=== PATIENT | female | born 1965 | race Caucasian/White ===

== ENCOUNTER 2021-12-01 19:46 | Emergency (ER) | payer OTHER, SELFPAY ==
--- NOTE | ~2021-12-01 | XR_ITS ---
EXAMINATION: XR WRIST, RIGHT CLINICAL INFORMATION: Injury. Deformity. COMPARISON: None TECHNIQUE: PA, lateral, and oblique views of the right wrist. FINDINGS: Comminuted but predominantly horizontally oriented distal radial fracture with dorsal angulation and mild impaction. No other fractures. Carpal rows are maintained. 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 XR/XR wrist RT min 3V IMPRESSION: Distal radial fracture as above.
[2021-12-01 21:15] VITALS: BP 171/106; PULSE 72; RESP 20; TEMP 36.6; O2SAT 97; BMI 25.5
[2021-12-01] MEDS: Acetaminophen 325 MG TABLET 650 MG PO (21:22)
--- NOTE | 2021-12-01 22:35 | ED.EXTPRO ---
HPI - Extremity Problem General Chief complaint: Extremity Injury, Upper Stated complaint: broken arm Time Seen by Provider: 12/01/21 22:23 Source: patient Mode of arrival: ambulatory Limitations: no limitations History of Present Illness HPI Narrative: 56-year-old female presents to the emergency department with complaints of right wrist pain status post work related injury. 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 She tells me is very swollen and painful to the touch. Vague complaints of numbness and tingling to all digits on the right hand. MD Complaint: joint swelling and joint pain Related Data Previous Rx's Medication Instructions Recorded morphine 15 mg immediate release 15 mg PO BID PRN pain #10 tabs 12/01/21 tablet Allergies Allergy/AdvReac Type Severity Reaction Status Date / Time No Known Allergies Allergy Verified 12/01/21 21:20 Review of Systems Review of Systems: Constitutional : No Weight loss, No Fever, No Chills, No Fatigue, No Malaise Eyes: No Eye Pain, No Swelling, No Redness Cardiovascular : No Chest Pain, No SOB, No Dyspnea on Exertion, No Orthopnea, No Edema, No Palpitations Respiratory : No Cough, No Sputum, No Wheezing Gastrointestinal : No Nausea, No Vomiting, No Diarrhea, No Constipation, No abdominal Pain, No Hematochezia, No Melena Genitourinary : No Dysuria, No Urinary Frequency, No Hematuria, Musculoskeletal : + joint pain, No Myalgias, + Joint Swelling Skin : No Skin Lesions, No rash Neuro : No Weakness, No Numbness, No Dizziness, No Headache All other systems reviewed and are negative Yes all other systems are reviewed and are negative [facility] Past Medical History Attestation statement: The following information was validated with the patient. Source: old records reviewed and nursing notes reviewed Social History Social History Advance Directives: No Advance Directives Information Provided: No Physical Exam Vital Signs: Vital Signs: Last Vital Signs Temp 98 F 12/01/21 21:15 Pulse 72 12/01/21 21:15 Resp 20 12/01/21 21:15 BP 171/106 H 12/01/21 21:15 Pulse Ox 97 12/01/21 21:15 O2 Del Method 12/01/21 21:15 BMI result Body Mass Index 25.5 The patient is noted to be hypertensive likely secondary to severe pain. Appearance: Alert.? Oriented X3.? No acute distress.? Head: Normocephalic, atraumatic, no step-offs or deformities Eyes: Pupils equal, round and reactive to light.? ENT: Pharynx normal.? Neck: Normal inspection.? Neck supple.? CVS: Normal heart rate and rhythm.? Pulses normal.? Respiratory: No respiratory distress.? Breath sounds normal.? Abdomen: Soft and nontender.? Skin: Skin warm and dry.? Normal skin color.? Normal skin turgor.? Extremities: 5/5 strength to left upper extremity and bilateral lower extremities. Unable to assess strength to the right upper extremity secondary to pain. Patient reports pain with range of motion to right wrist, there is significant swelling overlying the right wrist with some ecchymosis overlying the scaphoid region of the right wrist, capillary refill to bilateral upper extremity digits less than 2 seconds, sensory and motor intact. No wrist drop bilaterally. Right wrist with slight dorsal angulation pain Neuro: Oriented X 3.? No motor deficit.? No sensory deficit. CN 2-12 intact Course Reevaluation(s) Reevaluation #1: X-ray of the right wrist with distal radial fracture that is comminuted but predominantly horizontally oriented with a distal radial fracture with dorsal angulation and mild impaction. Plan at this time is to place patient in a splint. P.o. morphine will be given for pain. Time: 22:40 Reevaluation #2: Discussed this case w/ Dr. Covington. Will placed in a thumb spica splint, post placement neurovascularly intact. I advised patient to follow-up with orthopedics within a week. Educated patient on recent signs and symptoms and when to return. Time: 22:52 Reevaluation #3: Patient was placed in a thumb spica feeling slightly better, is given p.o. morphine, after placement of splint neurovascularly intact. At this time patient was discharged home with strict return precautions. Educated her on worrisome signs and symptoms and when to return. I did educate Ang compartment syndrome and educated her to return if any of these symptoms arise Time: 23:41 MDM - Extremity (Nontraumatic) MDM Narrative Medical decision making narrative: 2016 56-year-old female presents to the emergency department a work related injury status post falling onto an outstretched hand while at work, reporting 10/10 pain and unable to move that right wrist due to pain Physical examination significant for 5/5 strength to left upper extremity and bilateral lower extremities. Unable to assess strength to the right upper extremity secondary to pain. Patient reports pain with range of motion to right wrist, there is significant swelling overlying the right wrist with some ecchymosis overlying the scaphoid region of the right wrist, capillary refill to bilateral upper extremity digits less than 2 seconds, sensory and motor intact. No wrist drop bilaterally. Right wrist with slight dorsal angulation pain There is pain and swelling overlying the anatomical snuffbox region which is concerning for possible scaphoid fracture. Will rule out fractures, dislocations. Explained to patient that x-rays will only without fractures, dislocations significant soft tissue swelling and she will likely require an MRI Plan at this time is plain film to rule out fractures, dislocations. Medical Records Attestation: I reviewed the patient's medical records. Lab Data Attestation: I reviewed the patient's lab results. Critical Care Time Critical Care Time Critical Care Time: No Discharge Plan Discharge Clinical Impression: Distal radial fracture, Work related injury Patient Disposition: Home, Self-Care Instructions: Arm Fracture in Adults (ED), Wrist Fracture in Adults (ED), R.I.C.E. Treatment (ED) Additional Instructions: Take your medications as prescribed. If you were prescribed antibiotics today, it is important that you take your medication to their entirety, do not skip any doses, do not finish them early. Follow-up with your primary care provider this week. Follow-up with orthopedics within a week. Return to the emergency department with new or worsening symptoms. Such as fevers, chills, chest pain, shortness of breath, nausea, vomiting, dizziness, headache, vision changes, lethargy In case of emergency call 911 Follow-up with the work connection as this was a work related injury rest, ice, extermity FINDINGS: Comminuted but predominantly horizontally oriented distal radial fracture with dorsal angulation and mild impaction. No other fractures. Carpal rows are maintained. 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 XR/XR wrist RT min 3V IMPRESSION: Distal radial fracture as above. Prescriptions: New morphine 15 mg tablet 15 mg PO BID PRN (Reason: pain) Qty: 10 0RF Rx Instructions: Partial Fill upon patient request. Referrals: [facility] [place]Provider Group] - 1 week Stand Alone Forms: Work/School Release
[2021-12-01] MEDS: Morphine Sulfate Immed Release 15 MG TABLET PO (22:59)
[2021-12-01 23:49] VITALS: BP 152/88; PULSE 82; RESP 18; O2SAT 97
== END 2021-12-01 23:51 | disposition home or self-care (01) ==
PROVIDERS: Emergency Provider Internal Medicine
DX: S52.501A Unspecified fracture of the lower end of right radius, initial encounter for closed fracture (principal); X50.0XXA Overexertion from strenuous movement or load, initial encounter; X50.9XXA Other and unspecified overexertion or strenuous movements or postures, initial encounter; Y93.9 Activity, unspecified; Y92.9 Unspecified place or not applicable; Y99.0 Civilian activity done for income or pay
CPT/HCPCS: 29125; 73110; 99284

== ENCOUNTER 2021-12-08 09:24 | Outpatient (REF) | payer OTHER, SELFPAY | END 2021-12-08 09:25 | disposition home or self-care (01) | LOC: HO.HOSX 09:24 | PROVIDERS: Visit Provider Orthopaedic Surgery | DX: S52.501A Unspecified fracture of the lower end of right radius, initial encounter for closed fracture (principal) | CPT/HCPCS: 99202 ==

== ENCOUNTER 2021-12-11 07:29 | Day surgery (SDC) | payer OTHER, SELFPAY ==
--- NOTE | 2021-12-08 13:40 | P.CONAN_ITS ---
Documented by User: Seda Mercedes NP 12/08/21 13:41 HPI - Anesthesia Eval Consult details Narrative: 56yo F for Right Radius Distal Fracture ORIF PMFSH Active Problems Active Problems: All Active Problems (Updated 12/08/21 @ 11:20 by Johanna De Souza MD) Acute carpal tunnel syndrome of right wrist (Acute) Distal radius fracture, right (Acute) Past Medical History Medical History Acid reflux Anxiety High blood pressure Surgical History Surgical History (Updated 12/11/21 @ 09:24 by Katelyn Kim MD) H/O tubal ligation H/O: hysterectomy Previous section Social History Social History Patient Tobacco Use Status: Current someday Tobacco user Tobacco use type: Cigarette Use of substances other than those prescribed or required for medical reasons: No Are you DNR?: No Advance Directives: No Advance Directives Information Provided: Yes Advance Directives on File: No Current occupational status: employed 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[employer] Meds Allergies Allergy/AdvReac Type Severity Reaction Status Date / Time No Known Allergies Allergy Verified 12/08/21 10:49 Home Medications Medication Instructions Recorded Confirmed Last Taken Type amlodipine 10 mg tablet 10 mg PO DAILY 12/08/21 Unknown History bupropion HCl 100 mg tablet,12 hr 100 mg PO DAILY 12/08/21 Unknown History sustained-release clonazepam 0.5 mg tablet 0.5 mg PO BID PRN anxiety 12/08/21 Unknown History levothyroxine 112 mcg tablet 112 mcg PO QAM 12/08/21 Unknown History sertraline 50 mg tablet 50 mg PO DAILY 12/08/21 Unknown History Exam Exam Date and Time: December 08, 2021 1340 Assessment and Plan Assessment Anesthesia Assessment: Chart Reviewed Documented by User: Katelyn Kim MD 12/11/21 09:35 PMFSH Active Problems Active Problems: All Active Problems (Updated 12/08/21 @ 11:20 by Johanna De Souza MD) Acute carpal tunnel syndrome of right wrist (Acute) Distal radius fracture, right (Acute) Smoker Hypothyroidism Past Medical History Medical History Acid reflux Anxiety High blood pressure Family History Family history of problems with anesthesia: No Surgical History Surgical History (Updated 12/11/21 @ 09:24 by Katelyn Kim MD) H/O tubal ligation H/O: hysterectomy Previous section History of Problems with Anesthesia: No Social History Social History Patient Tobacco Use Status: Current someday Tobacco user Tobacco use type: Cigarette Use of substances other than those prescribed or required for medical reasons: No Are you DNR?: No Advance Directives: No Advance Directives Information Provided: Yes Advance Directives on File: No Current occupational status: employed 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[employer] Meds Allergies Allergy/AdvReac Type Severity Reaction Status Date / Time No Known Allergies Allergy Verified 12/08/21 10:49 Home Medications Medication Instructions Recorded Confirmed Last Taken Type amlodipine 10 mg tablet 10 mg PO DAILY 12/08/21 Unknown History bupropion HCl 100 mg tablet,12 hr 100 mg PO DAILY 12/08/21 Unknown History sustained-release clonazepam 0.5 mg tablet 0.5 mg PO BID PRN anxiety 12/08/21 Unknown History levothyroxine 112 mcg tablet 112 mcg PO QAM 12/08/21 Unknown History sertraline 50 mg tablet 50 mg PO DAILY 12/08/21 Unknown History Exam Height,Weight and Vital Signs: Height 5 ft 4 in Weight 63.049 kg Vital Signs Temp Pulse Resp BP Pulse Ox O2 Del Method 12/11/21 08:01 97.6 F 55 16 132/82 95 Room Air Airway Mallampati Class: II TM Dist: >3cm Neck ROM: Full Loose/Missing/Broken Teeth: No (Per patient ) Heart: RRR Lungs: CTAB Assessment and Plan Assessment Anesthesia Assessment: Anesthesia Plan Discussed Final Anesthetic Review Family History of Problems with Anesthesia: No History of Problems with Anesthesia: No NPO: Yes ASA Class: II Final Preanesthetic Review: No Changes in Pt Med Stat, Meds/Allgs Chart Reviewed, Consent Obtained/Reviewed and Anes Risks/Benef Reviewed Patient Risk: Low Procedure Risk: Low Assessment/Block/Sedation in SS: Assess/Block/Sedation-SS Anesthetic Plan Anesthetic Plan: GA and Regional Block (Right supraclavicular brachial plexus block) Disposition: Standard PACU
[2021-12-11] VITALS (7 sets, daily range): BP systolic 110–140; BP diastolic 68–85; PULSE 55–69; RESP 16; TEMP 36.2–36.4; O2SAT 94–98; BMI 23.8
--- NOTE | ~2021-12-11 | FL_ITS ---
EXAMINATION: XR FLUOROSCOPY WITH IMAGES CLINICAL INFORMATION: ORIF distal right radius. COMPARISON: Radiographs dated 12/01/2021. TECHNIQUE: Fluoroscopy performed by Carina De Souza. Fluoroscopy time: 25.56 seconds DAP: 0.0382 mGycm2 Images: 3 FINDINGS: The submitted images show a fixator plate and fixator screws applied to the distal right radius. The distal radial fracture fragment appears in good alignment. FL/FL guidance in OR IMPRESSION: Intraoperative fluoroscopic guidance is provided during distal right radial ORIF. Please see Operative Report for full procedural details.
[2021-12-11] MEDS: Lactated Ringers 1,000 ML 100 ML IVCONT (08:13)
--- NOTE | 2021-12-11 10:16 | MHC.SHP ---
Pre-Procedural Eval Section A Date of Service: 12/11/21 The patient is an INPATIENT: No Changes since office visit: No Cold of Flu in the past 2 weeks, No New Medical Problems, No Changes in Medication and No Patient answered all questions The History & Physical has been completed within 30 days and I have reviewed it.: Yes Section B Chief Complaint: Unspecified fracture of the lower end of right rad Allergies: Allergies Allergy/AdvReac Type Severity Reaction Status Date / Time No Known Allergies Allergy Verified 12/08/21 10:49 Plan I have reviewed the history and physical and performed a pertinent physical examination on my patient. No changes have occurred unless specified.
--- NOTE | 2021-12-11 10:16 | W.PM.OPN ---
Operative Note Operative Note Date of Service: 12/11/21 Narrative: Operative Note Narrative: Preop diagnosis: 1. Right comminuted Intra-articular Distal radius fracture Postop diagnosis: Same Procedure: 1. Right Distal radius fracture open reduction internal fixation, 2 part intra-articular Surgeon: Johanna De Souza MD Anesthesia: General anesthesia plus regional block Findings: comminuted intra-articular distal radius fracture Implants: A 3 hole Accu Med volar locking plate, with 4x 2.3 mm locking pegs/screws, and 3 3.5 mm cortical screws Tourniquet time: 54 minutes EBL: 5.0 ml Specimen: None Drains: None Complications: None Disposition: Brought to the recovery room in stable condition Plan: Follow-up in 10-14 days for wound check, suture removal and postop radiographs The patient will be placed in either a short-arm cast or a volar wrist splint. Encouraged no lifting of anything heavier than a cell phone. Please encourage active and passive range of motion of the digits. Follow-up at 4-5 weeks postop for repeat radiographs. Indications: The patient is a 48 year old woman with a displaced right distal radius fracture . The risks and benefits of operative treatment, including but not limited to risk of damage to blood vessels, nerves, tendons, infection, recurrence, persistent pain or numbness, incomplete resolution of preoperative symptoms, or need for further surgery were discussed with the patient and they wished to proceed with surgery. Procedure: Once consent was obtained patient was brought back to the operating suite and placed in the operating table in a supine position. A regional block was performed by the anesthesia team. Perioperative antibiotics and anesthesia was administered by the anesthesia team. A tourniquet was applied to the proximal aspect of the right upper extremity and the limb was prepped and draped in a standard surgical fashion. The limb was elevated exsanguinated with Esmarch bandage and the tourniquet inflated to 250 mm of mercury for a total tourniquet time of 50 for minutes. The FluoroScan was used throughout the case to assess our reduction, and facilitate implant placement. A gentle closed reduction was 1st performed on the patient's right distal radius fracture. Was assessed radiographically before proceeding with the reduction internal fixation. I then made an 8 cm longitudinal incision over the distal aspect of the flexor carpi radialis tendon. The incision was made through the skin to the subcutaneous tissue using a 15. Blade. Then carefully dissected down to flexor carpi radialis tendon she tenotomy scissors. The FCR tendon sheath was then incised longitudinally using tenotomy scissors under direct visualization. The FCR tendon was then retracted ulnarly. I then made a longitudinal incision in the volar forearm fascia through the floor of FCR tendon sheath using tenotomy scissors under direct visualization. I identified the interval between the radial artery and the flexor tendons. This interval was developed further with my index finger, releasing some of the muscular fibers of the flexor pollicis longus. A dull weatlander retractor was then placed. I then created an ulnarly based flap of the pronator quadratus by releasing the radial and distal edges using a 15. Blade. A Irby elevator was used to elevate the pronator quadratus from the volar surface of the distal radius. This then revealed to us our distal radius fracture. An open reduction was then performed on our distal radius fracture. I then placed a short narrow 3 hole Accu Med volar locking plate on the volar surface of the distal radius. I placed a single K-wire through the distal aspect of the plate and into the distal radius. This was assessed using fluoroscopic images. I was satisfied with the placement of our plate. I then placed 4x 2.3 mm locking screws/pegs in the distal aspect of the plate and distal radius by 1st drilling bicortically with a 1.8 mm drill bit, measuring with a depth gauge, and placing the appropriate length locking screws/pegs. The placement of our plate and screws was then assessed again using fluoroscopic images. The once satisfied with the placement of the volar locking plate and screws on the distal aspect of the distal radius, the plate was then reduced to the shaft of the radius. I then placed 3 3.5 mm cortical screws to the proximal aspect of the plate and into the shaft of the radius. This was done by 1st drilling bicortically with a 2.8 mm drill bit, measuring with a depth gauge, and placing the appropriate length screw. Final radiographs were then obtained. The DRUJ was assessed and found to be stable on exam. I was satisfied with our reduction and placement of all implants. At this point the wound was irrigated with normal saline. The pronator quadratus was reduced back over the volar locking plate using some 3-0 Vicryl suture material. The tourniquet was then deflated and hemostasis was obtained with a brief period of local pressure and bipolar monopolar electrocautery. The subcutaneous layer was then reapproximated using some 4-0 Vicryl suture, and the skin edges were reapproximated using some 5 0 Prolene suture. The wound was then infiltrated with some 1% lidocaine with epinephrine postop pain control. A sterile dressing and a short dorsal splint allowing for active flexion and extension of the digits was applied. The patient appears to have tolerated the procedure well and with no complications. All digits were well vascularized conclusion of the case.
== END 2021-12-11 14:12 | disposition home or self-care (01) ==
PROVIDERS: Visit Provider Orthopaedic Surgery
PROC: (CPT 64721; principal; 2021-12-11 09:20)
PROC: (CPT 64721; 2021-12-11 09:20)
DX: S52.571A Other intraarticular fracture of lower end of right radius, initial encounter for closed fracture (principal); G56.01 Carpal tunnel syndrome, right upper limb; R20.0 Anesthesia of skin; W03.XXXA Other fall on same level due to collision with another person, initial encounter; Y93.F2 Activity, caregiving, lifting; Y92.9 Unspecified place or not applicable; Y99.0 Civilian activity done for income or pay; I10 Essential (primary) hypertension; F41.1 Generalized anxiety disorder; F17.210 Nicotine dependence, cigarettes, uncomplicated
CPT/HCPCS: 64721; 25608; C1713; C1769; J0690; J1100; J2250; J2405; J2795; J3010

== ENCOUNTER 2021-12-20 08:17 | Outpatient (REF) | payer OTHER, SELFPAY ==
--- NOTE | ~2021-12-20 | XR_ITS ---
EXAMINATION: XR WRIST, RIGHT CLINICAL INFORMATION: Follow-up fracture. COMPARISON: Right wrist 12/01/2021. TECHNIQUE: PA, lateral, and oblique views of the right wrist. FINDINGS: There is a volar plate and screws stabilizing distal radial fracture in alignment. No other fracture seen. There is mild soft tissue swelling. XR/XR wrist RT min 3V IMPRESSION: Stabilized distal radial fracture with volar plate and screws.
== END 2021-12-20 08:18 | disposition home or self-care (01) ==
LOC: HO.HOSX 08:17
PROVIDERS: Visit Provider Orthopaedic Surgery
DX: M25.531 Pain in right wrist (principal)
CPT/HCPCS: 73110

== ENCOUNTER 2021-12-26 08:56 | Outpatient (REF) | payer OTHER, SELFPAY ==
--- NOTE | ~2021-12-26 | XR_ITS ---
EXAMINATION: XR WRIST, RIGHT CLINICAL INFORMATION: M25.531 - Pain in right wrist COMPARISON: Radiographs right wrist 12/20/2021, 12/01/2021 TECHNIQUE: Right wrist is imaged in 3 views. FINDINGS: There has been recent open reduction and internal fixation distal radial fracture with placement of a volar plate and screws. Hardware is intact. The radial side screw questionably may extend just beyond the cortex radial styloid. There is no destructive process or osteolysis. Alignment is near-anatomic. There is no acute bony abnormality. XR/XR wrist RT min 3V IMPRESSION: -Hardware intact. No destructive process or osteolysis. -Radial side screw questionably may extend just beyond the cortex radial styloid. -No acute bony abnormality.
== END 2021-12-26 08:57 | disposition home or self-care (01) ==
LOC: HO.HOSX 08:56
PROVIDERS: Visit Provider Orthopaedic Surgery
DX: M25.531 Pain in right wrist (principal)
CPT/HCPCS: 73110

== ENCOUNTER → 2022-01-08 08:03 | Outpatient (BNVA) | payer OTHER, SELFPAY | PROVIDERS: Visit Provider Physician Assistant | DX: T81.41XD Infection following a procedure, superficial incisional surgical site, subsequent encounter (principal); S52.501D Unspecified fracture of the lower end of right radius, subsequent encounter for closed fracture with routine healing; G56.01 Carpal tunnel syndrome, right upper limb | CPT/HCPCS: 11042 ==

== ENCOUNTER 2022-01-24 08:25 | Outpatient (REF) | payer OTHER, SELFPAY ==
--- NOTE | ~2022-01-24 | XR_ITS ---
EXAMINATION: XR WRIST, RIGHT CLINICAL INFORMATION: Pain right wrist COMPARISON: Right wrist 12/26/2021 TECHNIQUE: PA, lateral, and oblique views of the right wrist. FINDINGS: There is comminuted distal radial fracture has been stabilized with while or plate and screws in satisfactory alignment. The hardware is intact. No new fracture seen. There is diffuse osteopenia. XR/XR wrist RT min 3V IMPRESSION: Slowly healing distal radial fracture stabilized with ventral plate and screws. Diffuse osteopenia.
== END 2022-01-24 08:26 | disposition home or self-care (01) ==
LOC: HO.HOSX 08:25
PROVIDERS: Visit Provider Orthopaedic Surgery
DX: M25.531 Pain in right wrist (principal)
CPT/HCPCS: 73110

== ENCOUNTER 2022-02-06 07:47 | Outpatient (REF) | payer OTHER, SELFPAY ==
--- NOTE | ~2022-02-06 | CT_ITS ---
EXAMINATION: CT WRIST WITHOUT CONTRAST, RIGHT CLINICAL INFORMATION: Follow-up fracture. COMPARISON: Radiographs of the wrist from 12/20/2021 and 01/24/2022. TECHNIQUE: Noncontrast multidetector CT imaging examination of the right wrist is performed using submillimeter collimation. Axial images and multiplanar reformatted images are reviewed. This CT examination was performed using dose optimization techniques as appropriate, variously including the following: *Automated exposure control *Adjustment of mA and/or kV according to patient size (this includes techniques or standardized protocols for targeted exams where dose is matched to indication/reason for exam; i.e. extremities or head) *Use of iterative reconstruction technique DLP: 134 mGy-cm FINDINGS: Bones are diffusely osteopenic. Again noted is the comminuted, intra-articular fracture of the distal radius, status post fixation with volar plate and screws. There is posttraumatic loss of radial length with approximately 0.5 cm of ulna positive variance. The distal edge of the volar fixation plate is along the anterior radial rim, and the tip of the screw through the radial styloid penetrates cortical bone and projects approximately 0.2 cm beyond the cortex. There is posttraumatic bone loss of the radial metaphysis and epiphysis resulting in a relatively large lucent gap between the radial styloid fragment and the posterior and posteromedial fragments. Periosteal new bone provides partial osseous union around the fracture, particularly around the radial styloid. There is lack of bridging bone medially. There is moderate narrowing of radioscaphoid joint space. A lucent defect of the anterior cortex of the scaphoid waist might be posttraumatic or is possibly a mechanical erosion from the loss of radial length and intermittent abutment of scaphoid against the volar plate. A punctate calcification is noted at the distal pole of the scaphoid. Otherwise, carpal bones have normal shape and alignment. Also, alignment is maintained at carpometacarpal joints. There is radiocarpal joint effusion. Flexor and extensor tendons are grossly unremarkable. CT/CT wrist RT wo IV con IMPRESSION: * Posttraumatic osteolysis, and loss of length, of the distal radius, status post open reduction and internal fixation. * Currently, there is significant lack of osseous union through the region of the fracture, loss of the radioscaphoid joint space, and radiocarpal joint effusion. * Also, there is a region of osteolysis of the anterior scaphoid waist which could be posttraumatic or possibly mechanical erosion.
== END 2022-02-06 07:48 | disposition home or self-care (01) ==
LOC: HO.CT 07:47
PROVIDERS: Visit Provider Orthopaedic Surgery
DX: S52.501A Unspecified fracture of the lower end of right radius, initial encounter for closed fracture (principal)
CPT/HCPCS: 73200

== ENCOUNTER → 2022-02-07 12:17 | Outpatient (BNVA) | payer SELFPAY | PROVIDERS: Visit Provider Orthopaedic Surgery | DX: S52.501D Unspecified fracture of the lower end of right radius, subsequent encounter for closed fracture with routine healing (principal); G56.01 Carpal tunnel syndrome, right upper limb | CPT/HCPCS: 99212 ==

== ENCOUNTER 2022-02-08 10:34 | Outpatient (REF) | payer OTHER, SELFPAY ==
[2022-02-08 11:09] LABS: MANUAL DIFF FLAG NO
[2022-02-08 11:57] LABS: Basophils Absolute Auto 0.1 X10*3/uL (0.0-0.2); Basophils Percent Auto 0.8 % (0-2); Eosinophils Absolute Auto 0.1 X10*3/uL (0.0-0.4); Hemoglobin 12.9 g/dl (12.0-16.0); Imm Gran Abs Auto 0.03 X10*3/uL (0.00-0.03); Imm Gran Pct Auto 0.5 % (0.0-0.4); Lymphocytes Absolute Auto 1.6 X10*3/uL (1.2-4.9); Lymphocytes Percent Auto 23.6 % (20-40); Mean Corpuscular HGB Conc 33.1 g/dl (31.0-35.0); Mean Corpuscular Hemoglobin 28.4 pg (27.0-33.0); Mean Corpuscular Volume 85.9 fL (80.0-98.0); Mean Platelet Volume 8.2 fL (9.4-12.3); Monocytes Absolute Auto 0.5 X10*3/uL (0.1-1.2); Monocytes Percent Auto 7.5 % (2-11); Neutrophils Absolute Auto 4.4 x10*3/uL (2.0-8.3); Neutrophils Percent Auto 65.6 % (45-73); Platelet Count 455 X10*3/uL (160-400); Red Blood Count 4.54 X10*6/uL (4.20-5.50); Red Cell Distribution Width 13.2 % (11.0-16.0); White Blood Count 6.7 X10*3/uL (4.8-10.8)
[2022-02-08 12:48] LABS: Erythrocyte Sedimentation Rate 23 MM/HR (0-20)
[2022-02-10 14:37] LABS: CRP High Sensitivity 3.3 mg/L
== END 2022-02-08 10:35 | disposition home or self-care (01) ==
LOC: HO.LAB 10:34
PROVIDERS: Visit Provider Orthopaedic Surgery
DX: T81.41XA Infection following a procedure, superficial incisional surgical site, initial encounter (principal)
CPT/HCPCS: 36415; 85025; 85652; 86141; 87040

== ENCOUNTER 2022-02-21 08:38 | Outpatient (REF) | payer SELFPAY ==
--- NOTE | ~2022-02-21 | XR_ITS ---
EXAMINATION: XR WRIST, RIGHT CLINICAL INFORMATION: Fracture. COMPARISON: Previous x-rays most recent January [address] 02/06/2022. TECHNIQUE: 4 views of the right wrist. FINDINGS: The bones are osteopenic. There is a plate and screws transfixing the comminuted intra-articular right distal radius fracture. Orthopedic hardware appears unchanged. Distal radius fracture appears unchanged. There is question of collapse of the proximal carpal row, widening of scapholunate distance and proximal migration of the capitate bone. There is lucency in the mid scaphoid bone again questionable for fracture versus osteolysis. There is an old healed fracture of 5th metacarpal bone. There is cystic or erosive change of the ulnar styloid. XR/XR wrist RT w scaphoid IMPRESSION: Stable appearance to the distal radius fracture. Question collapse of the proximal carpal row, wide scapholunate distance and proximal migration of the capitate bone. Lucency in the mid scaphoid bone questionable for fracture versus osteolysis.
== END 2022-02-21 08:39 | disposition home or self-care (01) ==
LOC: HO.HOSX 08:38
PROVIDERS: Visit Provider Orthopaedic Surgery
DX: S52.501D Unspecified fracture of the lower end of right radius, subsequent encounter for closed fracture with routine healing (principal); G56.01 Carpal tunnel syndrome, right upper limb
CPT/HCPCS: 73110; 99212

== ENCOUNTER → 2022-02-23 10:41 | Outpatient (BNVA) | payer OTHER, SELFPAY | PROVIDERS: PCP Family Medicine; Visit Provider Internal Medicine | DX: S52.501A Unspecified fracture of the lower end of right radius, initial encounter for closed fracture (principal); T81.41XA Infection following a procedure, superficial incisional surgical site, initial encounter | CPT/HCPCS: 99202 ==

== ENCOUNTER 2022-02-26 17:24 | Inpatient (IN) | payer OTHER, SELFPAY ==
--- NOTE | 2022-02-23 08:34 | P.CONAN_ITS ---
Documented by User: Seda Mercedes NP 02/23/22 08:35 HPI - Anesthesia Eval Consult details Narrative: 56yo F for Right I&D Radius Distal,removal of some implants PMFSH Active Problems Active Problems: All Active Problems (Updated 02/07/22 @ 17:12 by Johanna De Souza MD) Stiffness of finger joint (Acute) Infection involving suture with abscess (Acute) Acute carpal tunnel syndrome of right wrist (Acute) Distal radius fracture, right (Acute) Past Medical History Medical History Acid reflux Anxiety High blood pressure Family History Family history of problems with anesthesia: No Surgical History Surgical History H/O tubal ligation H/O: hysterectomy Previous section History of Problems with Anesthesia: No Social History Social History Patient Tobacco Use Status: Former Tobacco user Quit Date: 2020 Tobacco use type: Cigarette Current occupational status: employed 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 Meds Allergies Allergy/AdvReac Type Severity Reaction Status Date / Time No Known Allergies Allergy Verified 02/23/22 10:55 Home Medications Medication Instructions Recorded Confirmed Last Taken Type amlodipine 10 mg tablet 10 mg PO DAILY 12/08/21 Unknown History bupropion HCl 100 mg tablet,12 hr 100 mg PO DAILY 12/08/21 Unknown History sustained-release clonazepam 0.5 mg tablet 0.5 mg PO BID PRN anxiety 12/08/21 Unknown History levothyroxine 112 mcg tablet 112 mcg PO QAM 12/08/21 Unknown History sertraline 50 mg tablet 50 mg PO DAILY 12/08/21 Unknown History Exam Exam Date and Time: February 23, 2022 0834 Pertinent Lab Results Pertinent Lab Results: Laboratory Tests 02/08/22 11:08 WBC 6.7 Hgb 12.9 Hct 39.0 Plt Count 455 H Assessment and Plan Assessment Anesthesia Assessment: Chart Reviewed Final Anesthetic Review Family History of Problems with Anesthesia: No History of Problems with Anesthesia: No Documented by User: Jon Yu MD 02/26/22 11:26 [facility] Past Medical History Medical History Acid reflux Anxiety High blood pressure Surgical History Surgical History H/O tubal ligation H/O: hysterectomy Previous section Social History Social History Patient Tobacco Use Status: Former Tobacco user Quit Date: 2020 Tobacco use type: Cigarette Current occupational status: employed 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 Meds Allergies Allergy/AdvReac Type Severity Reaction Status Date / Time No Known Allergies Allergy Verified 02/23/22 10:55 Home Medications Medication Instructions Recorded Confirmed Last Taken Type amlodipine 10 mg tablet 10 mg PO DAILY 12/08/21 Unknown History bupropion HCl 100 mg tablet,12 hr 100 mg PO DAILY 12/08/21 Unknown History sustained-release clonazepam 0.5 mg tablet 0.5 mg PO BID PRN anxiety 12/08/21 Unknown History levothyroxine 112 mcg tablet 112 mcg PO QAM 12/08/21 Unknown History sertraline 50 mg tablet 50 mg PO DAILY 12/08/21 Unknown History Exam Airway Mallampati Class: II TM Dist: >3cm Neck ROM: Full Loose/Missing/Broken Teeth: No Heart: rrr+[id number] Lungs: cta b/l Assessment and Plan Assessment Anesthesia Assessment: Anesthesia Plan Discussed Final Anesthetic Review NPO: Yes ASA Class: II Final Preanesthetic Review: No Changes in Pt Med Stat, Meds/Allgs Chart Reviewed, Consent Obtained/Reviewed and Anes Risks/Benef Reviewed Patient Risk: Intermediate Procedure Risk: Intermediate Assessment/Block/Sedation in SS: Assess/Block/Sedation-SS Anesthetic Plan Anesthetic Plan: GA and Agree w/ Assess. and Plan Disposition: Standard PACU
[2022-02-26] VITALS (14 sets, daily range): BP systolic 109–160; BP diastolic 71–87; PULSE 60–85; RESP 16–18; TEMP 36.1–37.1; O2SAT 93–98; BMI 25.7
--- NOTE | ~2022-02-26 | FL_ITS ---
EXAMINATION: XR FLUOROSCOPY WITH IMAGES CLINICAL INFORMATION: Removal orthopedic hardware from wrist COMPARISON: Previous fluoroscopy exam December and February 2022 TECHNIQUE: Fluoroscopy performed by Dr. Johanna De Souza. Fluoroscopy time: 36. Cumulative Dose: 0.8 mGy. DAP: 0.05 Gycm2. Images: 8. FINDINGS: Fluoroscopy guidance was provided for orthopedic hardware removal in the right distal radius. FL/FL guidance in OR IMPRESSION: Fluoroscopy guidance for orthopedic hardware removal.
--- NOTE | ~2022-02-26 | FL_ITS ---
EXAMINATION: XR FLUOROSCOPY WITH IMAGES CLINICAL INFORMATION: Distal radial fracture. COMPARISON: Radiographs right wrist 02/21/2022; CT right wrist 02/06/2022 TECHNIQUE: Fluoroscopy performed by Dr. Johanna De Souza. Fluoroscopy time: 17 seconds. Cumulative Dose: 0.504 mGy. DAP: 0.03 Gy-cm2. Images: 10. FINDINGS: There is volar side hardware with plate and screws. Hardware is intact. A thin metallic pin is pointed towards the distal radial metaphysis. FL/FL guidance in OR IMPRESSION: Fluoroscopy for orthopedic procedure.
[2022-02-26] MEDS: Lactated Ringers 1,000 ML 100 ML IVCONT ×2 (10:00→20:53)
[2022-02-26 10:30] LABS: COVID-19 Test Negative (Negative); IDNOW Serial# 9DB6401D
--- NOTE | 2022-02-26 11:23 | MHC.SHP ---
Pre-Procedural Eval Section A Date of Service: 02/26/22 The patient is an INPATIENT: No Changes since office visit: No Cold of Flu in the past 2 weeks, No New Medical Problems, No Changes in Medication and No Patient answered all questions The History & Physical has been completed within 30 days and I have reviewed it.: Yes Section B Chief Complaint: Unspecified fracture of the lower end of right rad Allergies: Allergies Allergy/AdvReac Type Severity Reaction Status Date / Time No Known Allergies Allergy Verified 02/23/22 10:55 Plan I have reviewed the history and physical and performed a pertinent physical examination on my patient. No changes have occurred unless specified.
--- NOTE | 2022-02-26 11:24 | W.PM.OPN ---
Operative Note Operative Note Date of Service: 02/26/22 Narrative: Operative Note Narrative: Preop diagnosis: 1. 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 Right distal radius I and D 2. Right distal radius removal of implants x 1 Surgeon: Johanna De Souza MD Anesthesia: General Anesthesia plus regional block Findings: No gross purulence found Watery, serosanguineous type fluid found deep, at the level of the scarring about the distal radius implants. Bone loss from the distal radius identified at the level of about half way across the distal oval hole in the plate. 25 gauge needle was used with fluoroscopy, and I also used a small curette to explore this bony defect. There is evidence of cortical bone dorsally. It feels like she has lost most of the articular subchondral bone from the distal radius. I could not enter the defect either radial or ulnar to the plate. Implants: implants removed include 1 X locking peg that had been placed in the radial styloid. Tourniquet time: 65 minutes EBL: 5.0 ml Specimen: Swabs were taken of the fluid about the plate and also from the fluid within the bony defect and sent for cultures. There was also small amount of cicatrix material taken from about the distal aspect of the plate sent for cultures. Bone taken through the oval hole at the distal aspect of the plate was sent for both histopathology and also for bony cultures. Cultures should include a robotic anaerobic AFB and fungal cultures. Drains: None Complications: None Disposition: Brought to the recovery room in stable condition Plan: admit to the floor for IV antibiotics based on Infectious Disease recommendations. Infectious Disease consult, likely PICC line. Wound check on the floor in 2-3 days or prior to discharge. Check pathology and cultures. Adjust antibiotics accordingly May benefit from a radioscapho-lunate arthrodesis after eradication of the presumed bony infection. Indications: The patient is a [age] year old woman with right distal radius bone loss status post right distal radius ORIF The risks and benefits of operative treatment, including but not limited to risk of damage to blood vessels, nerves, tendons, infection, recurrence, persistent pain or numbness, incomplete resolution of preoperative symptoms, or need for further surgery were discussed with the patient and they wished to proceed with surgery. Procedure: Once consent was obtained patient was brought back to the operating suite and placed in the operating table in a supine position. A regional block was performed by the anesthesia team. Perioperative antibiotics and anesthesia was administered by the anesthesia team. A tourniquet was applied to the proximal aspect of the right upper extremity and the limb was prepped and draped in a standard surgical fashion. The limb was elevated exsanguinated with Esmarch bandage and the tourniquet inflated to 250 mm of mercury for a total tourniquet time of 65 minutes. A longitudinal incision was made in line with her previous distal radius ORIF incision directly over the distal aspect of the FCR tendon. Incision was made through the skin the subcutaneous tissues using a 15. Blade. I then dissected down to the level of the FCR tendon. There was some scarring as would be expected, but no purulent material. I then passed just radial to the FCR tendon using a 15. Blade and tenotomy scissors. The FCR tendon was retracted ulnarly. I then passed deeply and radial to the deeper flexor tendons and scar tissue down to the level of the scar tissue over the volar aspect of the distal radius and the distal radius locking plate. At this point I encountered perhaps more fluid than 1 might expect. It was serosanguineous appearing and not particularly purulent. I made a longitudinal incision directly over the volar locking plate using a 15. Blade. The FluoroScan had been used to assure that we were over the distal radius volar locking plate. There is a small amount of yellow slimy soft tissue/cicatrix lying directly over the distal aspect of volar locking plate. This was removed using a rongeur and sent for cultures. Cultures were taken of the watery fluid using a swab. Again no grossly purulent fluid was identified. I then appreciated that I could pass a Martin elevator through the distal oval hole in the plate and into the defect in the distal radius. There was bone in the proximal half of the oval hole and it was missing distal to this. I did not appreciate any soft tissue within the bony defect. Cultures were taken of the fluid within the bony defect affect. Small amount of bone was taken through the oval hole and from the bone in the proximal half of the oval hole using a curette and sent for histopathology, and also for cultures. The locking peg that had been placed in the radial styloid was removed using a screwdriver and placed on the back table. This is the only implant that was removed today. I explored the bony defect using a 25 gauge needle and a Martin elevator and the FluoroScan. Again we had intact bone at about the mcc point of the distal oval hole in the plate. The defect was distal to this. I was able to pass a 25 gauge needle through what should have been distal articular subchondral bone. I believe this bone is missing. She did appear to have bone across the dorsal aspect of the distal radius that was intact. I should note also that I could not enter the bony defect either radial to or ulnar to any part of the volar locking plate as there was cortical bone intact. The 3 remaining locking screws were noted to be well secured to the plate. The 3 cortical screws were carefully tested with a screwdriver and found to be stable in their positions. There was no loosening and all 6 of these screws were left in place. The wound and the bony defect were all copiously irrigated with normal saline. I did use an an Angiocath on a 10 mL syringe to irrigate the bony defect well through the oval hole in the plate. At this point the tourniquet was deflated and hemostasis obtained with a brief period of local pressure and bipolar electrocautery. The skin edges were reapproximated with 4-0 nylon suture. The wound was infiltrated with some 0.5% plain ropivacaine for postop pain control and a sterile dressing and short dorsal splint was applied. The patient appears to have tolerated the procedure well and with no complications. All digits were well vascularized conclusion of the case.
[2022-02-26 17:05] LABS: Creatinine Clr Calc Pharmacy 80.7; Estimated Glomerular Filt Rate > 60
--- NOTE | 2022-02-26 17:52 | PHA.PROG ---
Admission Date/Time: February 26, 2022 17:24 Indication:OSTEO Weight in k.039 kg Serum Creatinine - Last 168 Hours 02/26/22 16:00 Creatinine 0.72 Estimated CrCl and GFR - Last 168 Hours 02/26/22 16:00 Estim Creat Clear Calc 80.7 Estimated GFR > 60 Vancomycin Loading Dose: 1500 Current Vancomycin Dosing Regimen: 100 Q 12 Vancomycin Monitoring using AUC goal of 400 - 600 range with trough as surrogate marker: 535 Date and Time for next Vancomycin Level to be drawn: 02/28 0500 Pharmacist Comments on Vancomycin Plan: Vancomycin dosing will take advantage of [employer] as a clinical decision support tool that uses Bayesian modeling to calculate individual patient's pharmacokinetic parameters and forecast the patient's drug concentration time course with the target goal AUC 24 range of 400 - 600 mg/L/hr.
[2022-02-26] MEDS: vancomycin HCL 1,500 MG in 0.9 % Sodium Chloride 500 ML 333.33 MG IV (18:17)
--- NOTE | 2022-02-26 20:54 | PHA.MEDREC ---
Pharmacy Consult ? Medication Reconciliation Pharmacy has completed the medication reconciliation. spoke with pt, has not taken her bupropion since yesterday bc of her procedure, but wants to take it donato so she doesnt have bizarre dreams
[2022-02-26] MEDS: Docusate Sodium 100 MG CAPSULE PO (20:57)
[2022-02-26] MEDS: amLODIPine Besylate 10 MG TABLET PO (21:28)
[2022-02-26] MEDS: buPROPion HCl XL 150 MG TAB.ER.24H PO (21:28)
[2022-02-26] MEDS: 0.9 % Sodium Chloride Flush 3 ML SYRINGE IVFLUSH (21:28)
[2022-02-26] MEDS: HYDROmorphone HCl 0.5 MG/0.5 ML SYRINGE IVPUSH (23:49)
[2022-02-27] VITALS (7 sets, daily range): BP systolic 112–138; BP diastolic 68–81; PULSE 60–66; RESP 17–18; TEMP 36–37; O2SAT 95–96
[2022-02-27] MEDS: oxyCODONE HCl Immed Release 5 MG TABLET 10 MG PO (04:20)
[2022-02-27] MEDS: vancomycin HCL 1,000 MG in 0.9 % Sodium Chloride 250 ML 270 MG IV ×2 (05:16→17:48)
[2022-02-27] MEDS: Lactated Ringers 1,000 ML 100 ML IVCONT ×2 (05:17→14:50)
[2022-02-27 06:21] LABS: Hemoglobin 11.4 g/dl (12.0-16.0)
[2022-02-27 06:33] LABS: Creatinine Clr Calc Pharmacy 85.4; Estimated Glomerular Filt Rate > 60
[2022-02-27] MEDS: HYDROmorphone HCl 0.5 MG/0.5 ML SYRINGE IVPUSH ×2 (07:34→12:53)
[2022-02-27] MEDS: Docusate Sodium 100 MG CAPSULE PO ×2 (07:34→20:02)
--- NOTE | 2022-02-27 07:34 | PM.PNORT ---
Subjective Subjective Date of Service: 02/27/22 Interval history: POD1 s/p right distal radius I+D with Dr. De Souza. No overnight events. Cultures pending. Pain is managed. No additional complaints. Physical Exam Vital Signs: Vital Signs: Last Vital Signs Temp 97.7 F 02/27/22 04:00 Pulse 60 02/27/22 04:00 Resp 18 02/27/22 04:00 BP 120/77 02/27/22 04:00 Pulse Ox 95 02/27/22 04:00 O2 Del Method 02/27/22 04:00 O2 Flow Rate 5 02/26/22 13:47 BMI result Body Mass Index 25.7 Const: General: cooperative, healthy appearing and no acute distress Resp: Effort & Inspection: normal respiratory effort and able to speak in complete sentences Cardio: Rate: regular rate Peripheral pulses: Peripheral pulses 2+ throughout GI: Palpation (GI): Soft to palpation Skin: Lesions: no lesions Rashes: no rashes Extrem: Other: Right wrist splint is clean, dry, and intact. Sensation is at baseline. Capillary refill is brisk. Procedures Date of Service Date of Service: 02/27/22 Progress Note: A&P Assessment and plan (1) Stiffness of finger joint: Status: Acute (2) Infection involving suture with abscess: Status: Acute (3) Acute carpal tunnel syndrome of right wrist: Status: Acute (4) Distal radius fracture, right: Status: Acute Plan Continue pain mgmnt Pending ID consult Cultures pending Exercises demonstrated at bedside for finger ROM Dispo planning-Cultures, ID consult, pain management Time Spent With Patient Time: Total time spent is greater than 50% in coordination of care (as documented) at patient's floor/unit and/or counseling patient: Quality Stroke Does the patient have a stroke diagnosis?: No VTE Prior VTE?: No VTE Risk Level:: Medical - moderate - high VTE Device Contraindication: N/A - Device Ordered VTE Drug Contraindication: N/A - Med Ordered
[2022-02-27] MEDS: 0.9 % Sodium Chloride Flush 3 ML SYRINGE IVFLUSH ×2 (07:45→14:57)
--- NOTE | 2022-02-27 09:06 | HO.POSTANES ---
Post Anesthesia Evaluation Post Anesthesia Evaluation Vital Signs: Vital Signs Temp Pulse Resp BP Pulse Ox O2 Del Method 02/27/22 07:38 98.6 F 66 17 119/77 96 Room Air 02/27/22 04:00 97.7 F 60 18 120/77 95 Room Air 02/27/22 00:00 98 F 65 18 138/79 96 Room Air Anesthesia: Nerve Block and General LMA Mental Status: Awake Pain Control: Satisfactory Nausea/Vomiting: None Hydration: Adequate Anesthesia-Related Issues: No Anes. Related Issues
--- NOTE | 2022-02-27 11:32 | MHC.CM.PN ---
EMR REVIEWED CM MET WITH PT, LIVES IN A SINGLE FAMILY, 2 STORY HOME WITH SPOUSE. INDEPENDENT AT BASELINE, NO DME. PT STATES SHE HAS A COPY OF HCP AT HOME IN SAFE, WILL HAVE SPOUSE BRING IN. COVID VAX X 4 WITH [employer]. DP:HOME WITH SPOUSE ASSIST, OPEN TO [facility] REFERRAL SHOULD THE PLAN BE HOME WITH IV ABT. REFERRALS PLACED, HAS NO PREFERENCE.
--- NOTE | 2022-02-27 14:17 | P.CNID_ITS ---
History of Present Illness Data of Consult Service Date: 02/27/22 Requesting physician: Johanna De Souza Primary Care Provider: Unknown Physician HPI Reason for consult: possible infection right radius She presents to hospital for I and D as well as removal implants right distal radius. She went to OR yesterday and I and D done and cultures sent of fluid from plate,bone and fluid surrounding bony defect described as watery. She has defect area distal radius. I had seen patient earlier in week and she stopped antibiotics three days presurgery obtain culture. Review of Systems Review of Systems: Yes all other systems are reviewed and are negative [facility] Past Medical History Medical History Acid reflux Anxiety High blood pressure Family History Family history: reviewed and not pertinent Surgical History Surgical History H/O tubal ligation H/O: hysterectomy Previous section Social History Social History Household Members: Spouse Housing: House Do you presently have visiting nurse or other home services: No Patient Tobacco Use Status: Former Tobacco user Quit Date: 2020 Tobacco use type: Cigarette Use of substances other than those prescribed or required for medical reasons: Yes Substance Use Type: Marijuana Substance Use Type Other:: vapes Substance Use Frequency: Daily Currently Displaying Signs/Symptoms of Drug Intoxication Withdrawal: No Have you been hit, kicked, punched, or otherwise hurt by someone within the past year? If so, by whom?: No Do you feel safe in your current relationship?: Yes Is there a partner from a previous relationship who is making you feel unsafe now?: No Are you made to feel afraid or neglected: No Are you DNR?: No Advance Directives: No Advance Directives Information Provided: No Do you have thoughts of harming others: None Do you have a plan to hurt others: No Plan Recently lost weight without trying: No Nutrition Risks: No Nutritional Risk Patient : No service: No Current occupational status: employed 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[employer] Meds Allergies Allergy/AdvReac Type Severity Reaction Status Date / Time No Known Allergies Allergy Verified 02/23/22 10:55 Active Medications: Current Medications Acetaminophen (Acetaminophen 325 Mg Tablet) 650 mg PO Q6H PRN PRN Reason: Pain, Mild (Pain Scale 1-3) Amlodipine Besylate (Amlodipine Besylate 10 Mg Tablet) 10 mg PO BEDTIME [facility]; Protocol Last Admin: 02/26/22 21:28 Dose: 10 mg Amlodipine Besylate (Amlodipine Besylate 10 Mg Tablet) 10 mg PO BEDTIME [facility]; Protocol Bupropion HCl (Bupropion Hcl Xl 150 Mg Tab.Er.24h) 150 mg PO DAILY [facility] Last Admin: 02/27/22 07:40 Dose: Not Given Docusate Sodium (Docusate Sodium 100 Mg Capsule) 100 mg PO BID [facility] Last Admin: 02/27/22 07:34 Dose: 100 mg Fentanyl (Fentanyl Citrate/Pf 100 Mcg/2 Ml Vial) 50 mcg IVPUSH Q5M PRN; Protocol PRN Reason: Pain, Moderate (Pain Scale 4-6 Hydromorphone HCl (Hydromorphone Hcl 0.5 Mg/0.5 Ml Syringe) 0.5 mg IVPUSH Q5M PRN; Protocol PRN Reason: Pain, Severe (Pain Scale 7-10) Last Admin: 02/27/22 12:53 Dose: 0.5 mg Lactated Ringer's (Lr) 1,000 mls @ 100 mls/hr IVCONT .Q10H [facility] Last Admin: 02/27/22 05:17 Dose: 100 mls/hr Promethazine HCl 6.25 mg/ (Sodium Chloride) 50.25 mls @ 201 mls/hr IV ONCE PRN PRN Reason: Nausea and Vomiting Vancomycin HCl 1,000 mg/ (Sodium Chloride) 270 mls @ 270 mls/hr IV Q12H [facility] Last Infusion: 02/27/22 06:24 Dose: Infused Ibuprofen (Ibuprofen 600 Mg Tablet) 600 mg PO Q6H PRN PRN Reason: Pain, Mild (Pain Scale 1-3) Levothyroxine Sodium (Levothyroxine Sodium 112 Mcg Tablet) 112 mcg PO DAILY@0600 [facility] Magnesium Hydroxide (Milk Of Magnesia 30 Ml Oral.Susp) 30 ml PO DAILY PRN PRN Reason: Constipation Non-Formulary Medication (Bupropion Hcl) 100 mg PO DAILY [facility] Omeprazole (Omeprazole 20 Mg Capsule.Dr) 20 mg PO DAILY@0630 [facility] Ondansetron HCl (Ondansetron Hcl 4 Mg/2 Ml Vial) 4 mg IVPUSH ONCE PRN PRN Reason: Nausea and Vomiting Oxycodone HCl (Oxycodone Hcl Immed Release 5 Mg Tablet) 5 mg PO Q4H PRN PRN Reason: Pain, Moderate (Pain Scale 4-6 Pharmacy Consult (Consult Rx Vancomycin Dosing) 1 each MISCELLANE DAILY PRN PRN Reason: Consult order Sertraline HCl (Sertraline Hcl 100 Mg Tablet) 100 mg PO DAILY [facility] Sodium Chloride (0.9 % Sodium Chloride Flush 3 Ml Syringe) [address] [facility] Last Admin: 02/27/22 07:45 Dose: 3 ml Home Medications Medication Instructions Recorded Confirmed Last Taken Type amlodipine 10 mg tablet 10 mg PO BEDTIME 12/08/21 02/26/22 02/25/22 History bupropion HCl 100 mg tablet,12 hr 100 mg PO DAILY 12/08/21 02/26/22 02/25/22 History sustained-release levothyroxine 112 mcg tablet 112 mcg PO DAILY@0630 12/08/21 02/26/22 02/25/22 History ibuprofen 600 mg tablet 600 mg PO BID PRN pain 02/26/22 02/26/22 02/25/22 History omeprazole 20 mg capsule,delayed 20 mg PO DAILY 02/26/22 02/26/22 02/26/22 History release sertraline 100 mg tablet 100 mg PO DAILY 02/26/22 02/26/22 02/25/22 History Physical Exam Vital Signs: Vital Signs: Last Vital Signs Temp 96.9 F 02/27/22 11:34 Pulse 65 02/27/22 11:34 Resp 18 02/27/22 11:34 BP 120/74 02/27/22 11:34 Pulse Ox 96 02/27/22 11:34 O2 Del Method 02/27/22 11:34 O2 Flow Rate 5 02/26/22 13:47 BMI result Body Mass Index 25.7 Const: General: cooperative HEENT: Head: Yes normal to inspection Face and sinus: Yes normal facial exam Mouth: Normal oral and palatal mucosa present Teeth and gingiva: dentition normal Eyes: General: appearance normal, both eyes and all related structures Pupils: Equal, round and reactive pupils present Resp: Effort & Inspection: normal respiratory effort Cardio: Rate: regular rate Rhythm: regular rhythm GI: Palpation (GI): Soft to palpation and nontender : General: Yes no CVA tenderness Back/Spine/Pelvis: Back: no CVA tenderness Skin: General skin exam: no rashes or lesions noted Neuro: General: moves all extremities Cranial nerves: Yes Equal, round and reactive pupils present Extrem: Other: right wrist wrapped Psych: Appearance: grossly normal Results Labs CBC & Chem 7: 02/27/22 05:29 02/27/22 05:29 Labs: Short CBC 02/27/22 Range/Units 05:29 Hgb 11.4 L (12.0-16.0) g/dl Hct 35.0 L (37.0-47.0) % BMP 02/26/22 02/27/22 16:00 05:29 Creatinine 0.72 0.68 Microbiology Microbiology Results: Microbiology 02/26/22 12:47 Wrist - Right Gram Stain - Final 02/26/22 12:47 Wrist - Right Routine Culture - Preliminary Staphylococcus species 02/26/22 12:47 Wrist - Right Anaerobic Culture - Preliminary Culture in progress. 02/26/22 12:47 Wrist - Right Gram Stain - Final 02/26/22 12:47 Wrist - Right Routine Culture - Preliminary Staphylococcus species 02/26/22 12:47 Wrist - Right Anaerobic Culture - Preliminary Culture in progress. 02/26/22 12:47 Wrist Right Gram Stain - Final 02/26/22 12:47 Wrist Right Routine Culture - Preliminary Staphylococcus species 02/26/22 12:47 Wrist Right Anaerobic Culture - Preliminary Culture in progress. 02/26/22 13:13 Wrist - Right Gram Stain - Final 02/26/22 13:13 Wrist - Right Routine Culture - Preliminary No growth to date. 02/26/22 13:13 Wrist - Right Anaerobic Culture - Preliminary No growth to date. 02/26/22 12:36 Wrist - Right Gram Stain - Final 02/26/22 12:36 Wrist - Right Routine Culture - Final Assessment and Plan (1) Infection involving suture with abscess: Status: Acute Staph species are being identified. Possible staph aureus,possible MRSA (2) Distal radius fracture, right: Status: Acute Plan Continue Vancomycin at this time as single agent. Will need PICC likely six weeks IV followed by oral (patient aware of risk to kidneys and other side effects) Await final cultures Blood cultures if not done and follow ESR and CRP weekly Follow with po antibiotic likely after six week IV
[2022-02-27] MEDS: oxyCODONE HCl Immed Release 5 MG TABLET PO (17:55)
[2022-02-27] MEDS: amLODIPine Besylate 10 MG TABLET PO (20:02)
[2022-02-27] MEDS: Sertraline HCL 100 MG TABLET PO (20:02)
[2022-02-27] MEDS: Acetaminophen 325 MG TABLET 650 MG PO (20:11)
[2022-02-27] MEDS: Ibuprofen 600 MG TABLET PO (20:11)
[2022-02-28] VITALS (7 sets, daily range): BP systolic 105–150; BP diastolic 61–87; PULSE 58–71; RESP 16–19; TEMP 36.2–36.6; O2SAT 95–97
[2022-02-28] MEDS: Lactated Ringers 1,000 ML 100 ML IVCONT (04:52)
[2022-02-28] MEDS: Levothyroxine Sodium 112 MCG TABLET PO (06:33)
[2022-02-28] MEDS: Omeprazole 20 MG CAPSULE.DR PO (06:33)
[2022-02-28] MEDS: vancomycin HCL 1,000 MG in 0.9 % Sodium Chloride 250 ML 270 MG IV (06:34)
[2022-02-28] MEDS: Ibuprofen 600 MG TABLET PO ×2 (06:40→20:51)
[2022-02-28] MEDS: Acetaminophen 325 MG TABLET 650 MG PO (06:40)
--- NOTE | 2022-02-28 07:25 | PM.PNORT ---
Subjective Subjective Date of Service: 02/28/22 Interval history: POD2 s/p right distal radius I+D with Dr. De Souza. No overnight events. Cultures pending. Pain is managed. No additional complaints. Physical Exam Vital Signs: Vital Signs: Last Vital Signs Temp 97.2 F 02/28/22 00:00 Pulse 60 02/28/22 00:00 Resp 18 02/28/22 00:00 BP 113/75 02/28/22 00:00 Pulse Ox 95 02/28/22 00:00 O2 Del Method 02/28/22 00:00 O2 Flow Rate 5 02/26/22 13:47 BMI result Body Mass Index 25.7 Const: General: cooperative HEENT: Head: Yes normal to inspection Face and sinus: Yes normal facial exam Mouth: Normal oral and palatal mucosa present Teeth and gingiva: dentition normal Eyes: General: appearance normal, both eyes and all related structures Pupils: Equal, round and reactive pupils present Resp: Effort & Inspection: normal respiratory effort Cardio: Rate: regular rate Rhythm: regular rhythm GI: Palpation (GI): Soft to palpation and nontender : General: Yes no CVA tenderness Back/Spine/Pelvis: Back: no CVA tenderness Skin: General skin exam: no rashes or lesions noted Neuro: General: moves all extremities Cranial nerves: Yes Equal, round and reactive pupils present Extrem: Other: right splint is clean, dry, and intact. Able to move all digits. lacking about 2cm from making a closed fist. Capillary refill brisk. Sensation at baseline. Psych: Appearance: grossly normal Procedures Date of Service Date of Service: 02/28/22 Progress Note: A&P Assessment and plan (1) Acute carpal tunnel syndrome of right wrist: Status: Acute (2) Infection involving suture with abscess: Status: Acute (3) Distal radius fracture, right: Status: Acute (4) Stiffness of finger joint: Status: Acute Plan Continue pain mgmnt ID consult - Pending PICC line placement Cultures pending Exercises demonstrated at bedside for finger ROM Dispo planning-Cultures, PICC line pending, pain management Time Spent With Patient Time: Total time spent is greater than 50% in coordination of care (as documented) at patient's floor/unit and/or counseling patient: Quality Stroke Does the patient have a stroke diagnosis?: No VTE Prior VTE?: No VTE Risk Level:: Medical - moderate - high VTE Device Contraindication: N/A - Device Ordered VTE Drug Contraindication: N/A - Med Ordered
[2022-02-28 08:10] LABS: Estimated Glomerular Filt Rate > 60
[2022-02-28] MEDS: Docusate Sodium 100 MG CAPSULE PO ×2 (08:19→20:44)
[2022-02-28] MEDS: Sertraline HCL 100 MG TABLET PO (08:20)
[2022-02-28 08:50] LABS: Vancomycin Trough 9.7 mcg/mL (10.0-20.0)
--- NOTE | 2022-02-28 09:00 | HE.PHANOTE ---
[vanco addendum] Pt's trough came back at 9.7 on 02/28/22; lab came late so next dose already given for 1000mg. Increased dose to 1250mg Q12H with predicted AUC 569mg/L. Next level to be drawn 03/01/22 @1600
[2022-02-28] MEDS: oxyCODONE HCl Immed Release 5 MG TABLET PO ×2 (12:10→17:08)
[2022-02-28] MEDS: vancomycin HCL 1,250 MG in 0.9 % Sodium Chloride 250 ML 166.67 MG IV (17:08)
[2022-02-28] MEDS: 0.9 % Sodium Chloride Flush 3 ML SYRINGE IVFLUSH ×2 (17:13→22:25)
--- NOTE | 2022-02-28 20:25 | P.DS_ITS ---
DS: Providers Provider Date of Service: 03/02/22 Date of admission: 02/26/22 17:24 Primary care physician: Unknown Physician Consults: 02/26/22 15:32 Consult to Infectious Diseases Stat Consulting Provider: Alicia Lua Reason for consultation: osteomyelitis Has provider been notified: Yes DS: Diagnosis Discharge Diagnosis (1) Acute carpal tunnel syndrome of right wrist: Status: Acute (2) Infection involving suture with abscess: Status: Acute (3) Distal radius fracture, right: Status: Acute (4) Stiffness of finger joint: Status: Acute DS: Summary Hospital Course Hospital Course: The patient underwent a successful 1. Right distal radius I and D ?2. Right distal radius removal of implants x 1 , was transferred to PACU and then to the floor to recover. During their stay, blood cultures were drawn which were NEGATIVE X 3, cultures obtained from the surgical site at the time of surgery POSITIVE FOR [employer]UREUS. She was seen by Dr Lua who recommended IV Daptomycin x6 weeks followed by PO. On 03/02/22, PASV PICC was placed. During her stay, her vitals were stable, afebrile at 97.5 . Labs were unremarkable, H/H 11.4/35.0, WBC , Cr 0.83, GFR >60. POD 2 her splint was removed, dressing changed and splint reapplied. She should continue to keep the splint clean, dry and intact. She was discharged home with [facility]. * Flush PICC line with 10 cc of normal saline 3 times a day * Routine discharge flushing with 10 mL of normal saline after blood specimen withdrawal, medication administration or post transfusion flushing Time Spent with Patient Time attestation: Total time spent providing and/or coordinating discharge services: Physical Exam Vital Signs: Vital Signs: Last Vital Signs Temp 97.8 F 02/28/22 19:32 Pulse 71 02/28/22 19:32 Resp 17 02/28/22 19:32 BP 115/71 02/28/22 19:32 Pulse Ox 96 02/28/22 19:32 O2 Del Method 02/28/22 19:32 O2 Flow Rate 5 02/26/22 13:47 BMI result Body Mass Index 25.7 DS: Data Data Completed and Pending Completed studies during hospitalization [Text1]: Pending at discharge 02/26/22 13:13 Surgical [PTH] Routine Labs on day of discharge: Laboratory Results - last 24 hr 02/28/22 02/28/22 05:57 05:57 Creatinine 0.70 Estim Creat Clear Calc 83.0 Estimated GFR > 60 Vancomycin Trough 9.7 L Preliminary micro results at discharge 02/27/22 16:07 Blood Culture - Preliminary Blood - Venous No growth after 24 hours. 02/27/22 16:07 Blood Culture - Preliminary Blood - Venous No growth after 24 hours. 02/26/22 16:12 Blood Culture - Preliminary Blood - Venous No growth after 48 hours. 02/26/22 16:12 Blood Culture - Preliminary Blood - Venous No growth after 48 hours. 02/26/22 13:13 Anaerobic Culture - Preliminary Wrist - Right Culture in progress. 02/26/22 12:47 Anaerobic Culture - Preliminary Wrist Right Culture in progress. 02/26/22 12:47 Anaerobic Culture - Preliminary Wrist - Right Culture in progress. 02/26/22 12:47 Anaerobic Culture - Preliminary Wrist - Right Culture in progress. Discharge Plan Discharge Patient Disposition: Home, Self-Care Discharge Diagnosis: s/p I&D right wrist Referrals: [facility] [Other] - 1 Week ([facility] WILL DELIVER YOUR IV ANTIBIOTICS, THEY ALSO PROVIDE NURSING SUPPORT OVER THE PHONE IF NEEDED. ) [facility] [Outside] - 1 Day ([facility], START OF CARE WILL BE TOMORROW 03/03 FOR FIRST DOSE OF IV ANTIBIOTICS) Alicia Lua MD [Physician] - 1 Week (03/09/22 10:30 [facility] Alicia Lua MD 2 wks,f/u,Osteomyelitis) Gabriele Smith PA-C [Physician [facility] [employer]pensing] - 1 Week (03/07/22 12:30 [facility] Gabriele Smith PA-C ) Discharge Medications: New acetaminophen 325 mg Tablet 650 mg PO Q6H PRN (Reason: Pain, Mild (Pain Scale 1-3)) 30 Days Qty: 240 0RF ibuprofen 600 mg Tablet 600 mg PO 3XD PRN (Reason: Pain, Mild (Pain Scale 1-3)) 30 Days Qty: 90 0RF oxycodone 5 mg Tablet 5 mg PO Q4H PRN (Reason: Pain, Moderate (Pain Scale 4-6) 5 Days Qty: 30 0RF Rx Instructions: Partial Fill upon patient request. daptomycin 350 mg recon soln 550 mg IV Q24H 42 Days Qty: 10 0RF Continued omeprazole 20 mg Capsule,Delayed Release(Dr/Ec) 20 mg PO DAILY sertraline 100 mg tablet 100 mg PO DAILY ibuprofen 600 mg tablet 600 mg PO BID PRN (Reason: pain) bupropion HCl 100 mg tablet sustained-release 12 hr 100 mg PO DAILY levothyroxine 112 mcg tablet 112 mcg PO DAILY@0630 amlodipine 10 mg tablet 10 mg PO BEDTIME Diet: Regular diet Activity on Discharge: As tolerated Stand Alone Forms: Patient Portal Discharge page Plan of Treatment: Continue daptomycin at this time as single agent. Will need PICC likely six weeks IV followed by oral Keep dressing clean, dry and intact
[2022-02-28] MEDS: amLODIPine Besylate 10 MG TABLET PO (20:44)
[2022-02-28] MEDS: Zolpidem Tartrate 5 MG TABLET PO (22:15)
[2022-03-01 03:25] VITALS: BP 122/79; PULSE 57; RESP 18; TEMP 36.6; O2SAT 96
[2022-03-01] MEDS: vancomycin HCL 1,250 MG in 0.9 % Sodium Chloride 250 ML 166.67 MG IV (06:23)
[2022-03-01] MEDS: Omeprazole 20 MG CAPSULE.DR PO (06:23)
[2022-03-01] MEDS: Levothyroxine Sodium 112 MCG TABLET PO (06:27)
[2022-03-01 07:18] VITALS: BP 114/67; PULSE 60; RESP 16; TEMP 36.7; O2SAT 95
[2022-03-01 07:36] LABS: Creatinine Clr Calc Pharmacy 79.6; Estimated Glomerular Filt Rate > 60
[2022-03-01] MEDS: Docusate Sodium 100 MG CAPSULE PO ×2 (08:12→21:22)
[2022-03-01] MEDS: oxyCODONE HCl Immed Release 5 MG TABLET PO (08:12)
[2022-03-01] MEDS: 0.9 % Sodium Chloride Flush 3 ML SYRINGE IVFLUSH ×3 (08:12→21:23)
[2022-03-01 11:10] VITALS: BP 118/71; PULSE 61; RESP 16; TEMP 36.9; O2SAT 95
[2022-03-01] MEDS: Ibuprofen 600 MG TABLET PO ×2 (13:19→21:32)
[2022-03-01 15:07] VITALS: BP 147/83; PULSE 64; RESP 62; TEMP 36.4; O2SAT 97
--- NOTE | 2022-03-01 15:25 | MHC.CM.PN ---
CM MET W/PT TO DISCUSS PLAN, PER IR PT WILL HAVE PICC PLACED TOMORROW AM, LIAISON FROM [facility] WILL BE APPROX 1PM TOMORROW FOR TEACH AT BEDSIDE, PT'S DTR WILL BE PRESENT AND POSSIBLY PTS WELL, CM WILL FOLLOW D/C NEEDS
[2022-03-01 16:37] LABS: Vancomycin Trough 17.7 mcg/mL (10.0-20.0)
[2022-03-01 19:11] VITALS: BP 136/77; PULSE 72; RESP 17; TEMP 36.8; O2SAT 97
--- NOTE | 2022-03-01 21:01 | PM.PNORT ---
Subjective Subjective Date of Service: 03/01/22 Interval history: POD3 s/p right distal radius I+D with Dr. De Souza. No overnight events. Cultures pending. Pain is managed. No additional complaints. Physical Exam Vital Signs: Vital Signs: Last Vital Signs Temp 98.3 F 03/01/22 19:11 Pulse 72 03/01/22 19:11 Resp 17 03/01/22 19:11 BP 136/77 03/01/22 19:11 Pulse Ox 97 03/01/22 19:11 O2 Del Method 03/01/22 19:11 O2 Flow Rate 5 02/26/22 13:47 BMI result Body Mass Index 25.7 Extrem: Other: Right wrist incision clean, dry and intact. No erythema or drainage NVI. Procedures Date of Service Date of Service: 03/01/22 Progress Note: A&P Assessment and plan (1) Infection involving suture with abscess: Status: Acute (2) Acute carpal tunnel syndrome of right wrist: Status: Acute (3) Distal radius fracture, right: Status: Acute (4) Stiffness of finger joint: Status: Acute Plan Continue pain mgmnt ID consult - Pending PICC line placement Cultures pending Exercises demonstrated at bedside for finger ROM Dispo planning-Cultures, PICC line pending, pain management Time Spent With Patient Time: Total time spent is greater than 50% in coordination of care (as documented) at patient's floor/unit and/or counseling patient: Quality Stroke Does the patient have a stroke diagnosis?: No VTE Prior VTE?: No VTE Risk Level:: Medical - moderate - high VTE Device Contraindication: N/A - Device Ordered VTE Drug Contraindication: N/A - Med Ordered
[2022-03-01] MEDS: amLODIPine Besylate 10 MG TABLET PO (21:22)
[2022-03-01] MEDS: Sertraline HCL 100 MG TABLET PO (21:22)
[2022-03-01] MEDS: SODIUM CHLORIDE 0.9% IV (21:25)
[2022-03-01] MEDS: DAPTOMYCIN IV (21:25)
--- NOTE | 2022-03-01 22:42 | PC.NURSE ---
Daptomycin IV was given late as med was not available, pharmacy was called and able to deliver med after 2099.
[2022-03-01 23:35] VITALS: BP 147/79; PULSE 63; RESP 16; TEMP 36; O2SAT 96
[2022-03-02 03:18] VITALS: BP 126/77; PULSE 51; RESP 16; TEMP 36.4; O2SAT 96
[2022-03-02] MEDS: Levothyroxine Sodium 112 MCG TABLET PO (05:43)
[2022-03-02] MEDS: Omeprazole 20 MG CAPSULE.DR PO (05:43)
[2022-03-02 07:03] LABS: Estimated Glomerular Filt Rate > 60
[2022-03-02 07:39] VITALS: BP 139/93; PULSE 59; RESP 15; TEMP 36.4; O2SAT 99
[2022-03-02] MEDS: Acetaminophen 325 MG TABLET 650 MG PO ×2 (08:50→20:53)
[2022-03-02] MEDS: 0.9 % Sodium Chloride Flush 3 ML SYRINGE IVFLUSH ×3 (08:53→23:30)
[2022-03-02] MEDS: Docusate Sodium 100 MG CAPSULE PO ×2 (09:01→20:50)
--- NOTE | 2022-03-02 09:46 | MHC.CM.PN ---
Addendum entered by Neeta Morris RN 03/02/22 16:01: PER [facility] AUTH NOT RECEIVED, ANTIC PT WILL REMAIN INPT OVER THE W/E. Addendum entered by Neeta Morris RN 03/02/22 09:55: ANTIC PT WILL D/C TODAY ONCE AUTH FROM [employer] [facility] IS GIVEN FOR DAPTO AND AFTER FIRST DOSE OF DAPTO THROUGH NEW PICC LINE, PT WILL HAVE [facility] W/SOC TOMORROW. Original Note: CAYETANO CONTACTED [facility] LIAISON WHO REPORTS SHE WILL BE IN AROUND 1PM FOR TEACH W/PT AND DTR AT BEDSIDE, LIAISON ALSO REQUESTED CBC W/DIF AND BMP D/T DAPTO, IV ORDER FORM TO BE SENT VIA [employer] ONCE SIGNED BY [facility]. CAYETANO MET W/PT TO LET HER KNOW WHEN [facility] WOULD BE IN FOR TEACH AND SUGGESTED SHE HAVE HER COME IN FOR TEACH WELL HE CALLED W/CONCERNS LATE IN SHIFT YESTERDAY 03/01, PER PT IS UNAVAILABLE TODAY.
--- NOTE | 2022-03-02 11:54 | P.PICC_ITS ---
PICC Line Insertion NPICC Diagnosis: Right wrist infection Indication: intermediate antibiotics needed Pertinent Labs: reviewed Technique: Following informed consent including risks, benefits and alternatives and using sterile technique including cap and mask, sterile gown, glove and drape, the Left arm was prepped and draped in the usual sterile fashion of full barrier technique with [facility]. Following completion of [place] Protocol the skin and soft tissues were anesthetized with 1% Lidocaine plain. Using ultrasound guidance, Left basilic vein access was obtained twice by Lindsay Friedman RN, but unable to pass guidewire. Left Basilic vein was accessed by Enrique Rodriguez RN on third attempt. Over an 0.018 wire through peel-away sheath, a 4FR Single Lumen PICC line was positioned. Catheter length is 47 CM internal length, 0 CM external length, for a total trimmed length of 47 CM. The procedure was performed in S272. Tip verification was performed by Marisol Beatty with Sherlock 3CG. Tip located in SVC. Ultrasound was used to document vein patency and for needle entry. A formal ultrasound picture and cardiac rhythm strip was recorded. Vascular Flight Nurse has released the line for use and it is currently dressed with a StatLock, Tegaderm, and CHG disc. Verification has been performed for blood return and line patency. Arm Circumference: 27 CM Equipment: Reesio Power PICC Solo Catheter Type: 4FR Single Lumen PICC Lot #: [id number]
[2022-03-02 12:00] VITALS: BP 150/97; PULSE 64; RESP 16; TEMP 36.6; O2SAT 97
[2022-03-02] MEDS: oxyCODONE HCl Immed Release 5 MG TABLET PO ×2 (12:41→19:04)
[2022-03-02 12:42] LABS: MANUAL DIFF FLAG NO
[2022-03-02 12:44] LABS: Basophils Percent Auto 0.5 % (0-2); Eosinophils Absolute Auto 0.1 X10*3/uL (0.0-0.4); Eosinophils Percent Auto 1.9 % (0-4); Hematocrit 39.1 % (37.0-47.0); Hemoglobin 12.9 g/dl (12.0-16.0); Imm Gran Abs Auto 0.03 X10*3/uL (0.00-0.03); Imm Gran Pct Auto 0.4 % (0.0-0.4); Lymphocytes Percent Auto 26.2 % (20-40); Mean Corpuscular Hemoglobin 28.8 pg (27.0-33.0); Mean Corpuscular Volume 87.3 fL (80.0-98.0); Mean Platelet Volume 8.1 fL (9.4-12.3); Monocytes Absolute Auto 0.5 X10*3/uL (0.1-1.2); Monocytes Percent Auto 6.9 % (2-11); Neutrophils Absolute Auto 4.8 x10*3/uL (2.0-8.3); Neutrophils Percent Auto 64.1 % (45-73); Platelet Count 425 X10*3/uL (160-400); Red Blood Count 4.48 X10*6/uL (4.20-5.50); Red Cell Distribution Width 13.5 % (11.0-16.0); White Blood Count 7.6 X10*3/uL (4.8-10.8)
[2022-03-02 12:58] LABS: Anion Gap 18 (12-20); Blood Urea Nitrogen 16 mg/dL (9-16); Calcium 10.1 mg/dL (8.4-10.2); Carbon Dioxide 23 mmol/L (22-29); Chloride 103 mmol/L (96-108); Creatinine Clr Calc Pharmacy 67.6; Estimated Glomerular Filt Rate > 60; Glucose Random 107 mg/dL (60-115); Potassium 4.5 mmol/L (3.3-5.1); Sodium 139 mmol/L (135-145)
[2022-03-02 15:10] VITALS: BP 128/85; PULSE 66; RESP 17; TEMP 36.9; O2SAT 94
[2022-03-02] MEDS: 0.9 % Sodium Chloride Flush 10 ML SYRINGE 5 ML IVFLUSH ×2 (15:58→20:50)
[2022-03-02 19:22] VITALS: BP 152/94; PULSE 72; RESP 17; TEMP 36.9; O2SAT 96
--- NOTE | 2022-03-02 19:36 | PM.PNORT ---
Subjective Subjective Date of Service: 03/02/22 Interval history: POD4 s/p right distal radius I+D with Dr. De Souza. No overnight events. . Pain is managed. No additional complaints. Physical Exam Vital Signs: Vital Signs: Last Vital Signs Temp 98.4 F 03/02/22 19:22 Pulse 72 03/02/22 19:22 Resp 17 03/02/22 19:22 BP 152/94 H 03/02/22 19:22 Pulse Ox 96 03/02/22 19:22 O2 Del Method 03/02/22 19:22 O2 Flow Rate 5 02/26/22 13:47 BMI result Body Mass Index 25.7 Extrem: Other: Right wrist incision clean, dry and intact. No erythema or drainage NVI. Procedures Date of Service Date of Service: 03/02/22 Progress Note: A&P Assessment and plan (1) Stiffness of finger joint: Status: Acute (2) Infection involving suture with abscess: Status: Acute (3) Acute carpal tunnel syndrome of right wrist: Status: Acute (4) Distal radius fracture, right: Status: Acute Plan Continue pain mgmnt ID consult - PICC line placement and iv daptomycin x 6 weeks blood cx neg x 3 wound cultures + staph aureus Exercises demonstrated at bedside for finger ROM Dispo planning-home vna infusion auth Time Spent With Patient Time: Total time spent is greater than 50% in coordination of care (as documented) at patient's floor/unit and/or counseling patient: Quality Stroke Does the patient have a stroke diagnosis?: No VTE Prior VTE?: No VTE Risk Level:: Medical - moderate - high VTE Device Contraindication: N/A - Device Ordered VTE Drug Contraindication: N/A - Med Ordered
[2022-03-02] MEDS: SODIUM CHLORIDE 0.9% IV (20:47)
[2022-03-02] MEDS: DAPTOMYCIN IV (20:47)
[2022-03-02] MEDS: amLODIPine Besylate 10 MG TABLET PO (20:50)
[2022-03-02] MEDS: Sertraline HCL 100 MG TABLET PO (20:50)
[2022-03-03] VITALS (7 sets, daily range): BP systolic 120–168; BP diastolic 67–74; PULSE 60–74; RESP 15–20; TEMP 36.3–37.2; O2SAT 95–99
[2022-03-03] MEDS: oxyCODONE HCl Immed Release 5 MG TABLET PO ×4 (03:06→21:50)
[2022-03-03] MEDS: Ibuprofen 600 MG TABLET PO ×3 (03:09→17:36)
[2022-03-03] MEDS: Omeprazole 20 MG CAPSULE.DR PO (05:35)
[2022-03-03] MEDS: Levothyroxine Sodium 112 MCG TABLET PO (05:35)
[2022-03-03 06:07] LABS: Estimated Glomerular Filt Rate > 60
[2022-03-03] MEDS: 0.9 % Sodium Chloride Flush 3 ML SYRINGE IVFLUSH ×3 (08:50→21:53)
[2022-03-03] MEDS: 0.9 % Sodium Chloride Flush 10 ML SYRINGE 5 ML IVFLUSH ×3 (08:51→20:46)
[2022-03-03] MEDS: Docusate Sodium 100 MG CAPSULE PO ×2 (08:51→20:35)
--- NOTE | 2022-03-03 12:11 | PM.EVENT ---
Event Note Date of Service: 03/03/22 Event Note: Continue IV abx awaiting w/c approval for home infusion services for discharge
[2022-03-03] MEDS: amLODIPine Besylate 10 MG TABLET PO (20:35)
[2022-03-03] MEDS: Sertraline HCL 100 MG TABLET PO (20:36)
[2022-03-03] MEDS: DAPTOMYCIN IV (20:36)
[2022-03-03] MEDS: SODIUM CHLORIDE 0.9% IV (20:36)
[2022-03-04 04:00] VITALS: BP 130/68; PULSE 61; RESP 16; TEMP 36.8; O2SAT 96
[2022-03-04] MEDS: Ibuprofen 600 MG TABLET PO ×2 (04:18→18:21)
[2022-03-04] MEDS: oxyCODONE HCl Immed Release 5 MG TABLET PO ×4 (04:19→23:17)
[2022-03-04] MEDS: Levothyroxine Sodium 112 MCG TABLET PO (05:39)
[2022-03-04] MEDS: Omeprazole 20 MG CAPSULE.DR PO (05:40)
[2022-03-04 07:26] LABS: Creatinine Clr Calc Pharmacy 73.5; Estimated Glomerular Filt Rate > 60
[2022-03-04 08:00] VITALS: BP 155/90; PULSE 72; RESP 18; TEMP 36.5; O2SAT 98
[2022-03-04] MEDS: Docusate Sodium 100 MG CAPSULE PO ×2 (08:46→21:59)
[2022-03-04] MEDS: Acetaminophen 325 MG TABLET 650 MG PO (10:33)
[2022-03-04 11:12] VITALS: BP 174/89; PULSE 63; RESP 18; TEMP 36.6; O2SAT 96
[2022-03-04 15:13] VITALS: BP 134/77; PULSE 60; RESP 18; TEMP 36.4; O2SAT 96
[2022-03-04] MEDS: DAPTOMYCIN IV (18:23)
[2022-03-04] MEDS: SODIUM CHLORIDE 0.9% IV (18:23)
[2022-03-04 19:53] VITALS: BP 159/77; PULSE 65; RESP 16; TEMP 36.3; O2SAT 98
[2022-03-04] MEDS: amLODIPine Besylate 10 MG TABLET PO (21:59)
[2022-03-04] MEDS: Sertraline HCL 100 MG TABLET PO (21:59)
[2022-03-04] MEDS: 0.9 % Sodium Chloride Flush 10 ML SYRINGE 5 ML IVFLUSH (21:59)
[2022-03-04] MEDS: 0.9 % Sodium Chloride Flush 3 ML SYRINGE IVFLUSH (22:02)
[2022-03-05] VITALS: BP 131/72; PULSE 63; RESP 16; TEMP 36.3; O2SAT 97
[2022-03-05] MEDS: Levothyroxine Sodium 112 MCG TABLET PO (05:54)
[2022-03-05] MEDS: Omeprazole 20 MG CAPSULE.DR PO (05:54)
[2022-03-05 07:26] LABS: Creatinine Clr Calc Pharmacy 74.5; Estimated Glomerular Filt Rate > 60
[2022-03-05 07:57] VITALS: BP 164/78; PULSE 67; RESP 14; TEMP 36.2; O2SAT 97
[2022-03-05] MEDS: oxyCODONE HCl Immed Release 5 MG TABLET PO ×3 (08:19→22:01)
[2022-03-05] MEDS: Docusate Sodium 100 MG CAPSULE PO ×2 (08:19→20:18)
[2022-03-05] MEDS: 0.9 % Sodium Chloride Flush 3 ML SYRINGE IVFLUSH (08:20)
[2022-03-05] MEDS: 0.9 % Sodium Chloride Flush 10 ML SYRINGE 5 ML IVFLUSH ×3 (08:20→20:21)
[2022-03-05 11:22] VITALS: BP 164/70; PULSE 69; RESP 17; TEMP 36.3; O2SAT 98
[2022-03-05] MEDS: Ibuprofen 600 MG TABLET PO (12:43)
--- NOTE | 2022-03-05 13:47 | PC.NURSE ---
Patient is very upset ,crying because she won't be able to be discharged for another couple of days. Case management is taking care of arranging home infusion for antibiotics.. came and told this RN he gave her one clonazepam pill 0.5 mg he brought from home. He notified this RN that the patient is taking it at home PRN for anxiety. Home med list updated, message sent to Sherine QUACH to reorder if possible.
--- NOTE | 2022-03-05 13:58 | MHC.CM.PN ---
PER [facility] LIAISON IT WILL TAKE 3-5 BUSINESS DAYS FOR AUTH FOR IV ABX, AUTH SENT 03/02. CM RECEIVED MESSAGE FROM [facility]THO WHO REPORT PT TO HAVE A PROCEDURE W/DR STRINGER ON THURSDAY 03/08, CM WILL CONT TO FOLLOW.
[2022-03-05 15:06] VITALS: BP 170/92; PULSE 63; RESP 18; TEMP 36.3; O2SAT 96
--- NOTE | 2022-03-05 16:11 | PM.PNORT ---
Subjective Subjective Date of Service: 03/05/22 Principal diagnosis: Right distal radius osteomyelitis Physical Exam Vital Signs: Vital Signs: Last Vital Signs Temp 97.4 F 03/05/22 15:06 Pulse 63 03/05/22 15:06 Resp 18 03/05/22 15:06 BP 170/92 H 03/05/22 15:06 Pulse Ox 96 03/05/22 15:06 O2 Del Method 03/05/22 15:06 O2 Flow Rate 5 02/26/22 13:47 BMI result Body Mass Index 25.7 Extrem: Other: She is wearing her thermoplastic wrist splint. She is able to bring her fingers closed to weak fist and then back into extension with some stiffness in the PIP joints in extension. She has improved sensation in the thumb and index finger but still has dense numbness in the middle finger She appears comfortable and not in pain It looks like they got her PICC line in. Procedures Date of Service Date of Service: 03/05/22 Progress Note: A&P Assessment and plan (1) Osteomyelitis of right radius: Status: Acute Plan Assessment and plan: 1. Right distal radius osteomyelitis Cultures are growing out Staph aureus, MSSA Continuing to follow cultures 2. Right distal radius retained implants following ORIF 3. Right distal radius fracture with volar wrist instability 4. Right carpal tunnel syndrome status post carpal tunnel release Some improvement in symptoms I talked with Marita and her this afternoon. This is a complex problem. I believe we need to take her back to the operating room to remove the volar locking plate and screws and perform another I and D. She will then need to be placed in a wrist external fixator to maintain wrist alignment. She will be continuing with a course of IV antibiotics for approximately 6 weeks per Infectious Disease recommendations. They understand that she will then need a reconstructive procedure after treatment of the bone infection. This may involve a partial wrist fusion. The risks and benefits of operative treatment were discussed with the patient and the patient wishes to proceed with surgery. These risks include, but are not limited to risk of damage to blood vessels, nerves, tendons, infection, recurrence, incomplete relief of preoperative symptoms, persistent pain, possible need for further surgery and the risks associated with regional blocks and anesthesia. The plan is to take the patient to the operating room for the following procedures: 1. Right distal radius removal of implants 2. Right distal radius I and D 3. Right wrist reduction and placement of external fixator. All of the preoperative paperwork including the consent was filled out today. All the patient's questions were answered. I do think that, from a surgical standpoint, it is likely that she could be discharged on after her surgery. Time Spent With Patient Time: Total time spent is greater than 50% in coordination of care (as documented) at patient's floor/unit and/or counseling patient: Quality Stroke Does the patient have a stroke diagnosis?: No VTE Prior VTE?: No VTE Risk Level:: Medical - moderate - high VTE Device Contraindication: N/A - Device Ordered VTE Drug Contraindication: N/A - Med Ordered
[2022-03-05] MEDS: DAPTOMYCIN IV (18:33)
[2022-03-05] MEDS: SODIUM CHLORIDE 0.9% IV (18:33)
[2022-03-05 19:10] VITALS: BP 140/88; PULSE 68; RESP 18; TEMP 36.4; O2SAT 95
[2022-03-05] MEDS: amLODIPine Besylate 10 MG TABLET PO (20:18)
[2022-03-05] MEDS: Sertraline HCL 100 MG TABLET PO (20:18)
[2022-03-06] VITALS (7 sets, daily range): BP systolic 126–142; BP diastolic 66–97; PULSE 61–80; RESP 15–18; TEMP 36.2–36.7; O2SAT 95–98
[2022-03-06] MEDS: oxyCODONE HCl Immed Release 5 MG TABLET PO ×4 (04:31→19:50)
[2022-03-06] MEDS: Omeprazole 20 MG CAPSULE.DR PO (05:25)
[2022-03-06] MEDS: Levothyroxine Sodium 112 MCG TABLET PO (05:25)
[2022-03-06 07:39] LABS: Creatinine Clr Calc Pharmacy 73.5; Estimated Glomerular Filt Rate > 60
[2022-03-06] MEDS: 0.9 % Sodium Chloride Flush 10 ML SYRINGE 5 ML IVFLUSH ×3 (08:24→21:33)
[2022-03-06] MEDS: Docusate Sodium 100 MG CAPSULE PO ×2 (08:24→19:50)
[2022-03-06] MEDS: 0.9 % Sodium Chloride Flush 3 ML SYRINGE IVFLUSH ×3 (08:25→20:02)
[2022-03-06] MEDS: Acetaminophen 325 MG TABLET 650 MG PO (12:29)
[2022-03-06] MEDS: amLODIPine Besylate 10 MG TABLET PO (19:51)
[2022-03-06] MEDS: Sertraline HCL 100 MG TABLET PO (19:51)
[2022-03-06] MEDS: DAPTOMYCIN IV (19:54)
[2022-03-06] MEDS: SODIUM CHLORIDE 0.9% IV (19:54)
[2022-03-07] MEDS: Omeprazole 20 MG CAPSULE.DR PO (05:52)
[2022-03-07] MEDS: Levothyroxine Sodium 112 MCG TABLET PO (05:52)
[2022-03-07] MEDS: oxyCODONE HCl Immed Release 5 MG TABLET PO ×3 (05:52→20:58)
[2022-03-07] MEDS: Ibuprofen 600 MG TABLET PO ×3 (05:54→20:59)
[2022-03-07 07:21] LABS: Creatinine Clr Calc Pharmacy 74.5; Estimated Glomerular Filt Rate > 60
[2022-03-07 07:38] VITALS: BP 128/72; PULSE 64; RESP 17; TEMP 36.4; O2SAT 97
[2022-03-07] MEDS: Docusate Sodium 100 MG CAPSULE PO ×2 (07:57→20:59)
[2022-03-07] MEDS: 0.9 % Sodium Chloride Flush 10 ML SYRINGE 5 ML IVFLUSH ×3 (07:58→19:28)
[2022-03-07] MEDS: 0.9 % Sodium Chloride Flush 3 ML SYRINGE IVFLUSH ×2 (07:58→17:46)
[2022-03-07 12:00] VITALS: BP 164/79; PULSE 69; RESP 18; TEMP 36.4; O2SAT 99
[2022-03-07 15:33] VITALS: BP 177/90; PULSE 78; RESP 19; TEMP 36.5; O2SAT 98
--- NOTE | 2022-03-07 16:38 | MHC.CM.PN ---
[facility] REVIEWED, PER [facility] THEY STILL HAVE NOT RECEIVED PRIOR AUTH FROM PT'S [employer]MAN[employer] FOR IV ABX, PER ORTHO PT WILL RETURN TO OR TOMORROW FOR EXTERNAL FIXATOR AND I&D, CM WILL CONT TO FOLLOW D/C NEEDS.
[2022-03-07] MEDS: DAPTOMYCIN IV (18:31)
[2022-03-07] MEDS: SODIUM CHLORIDE 0.9% IV (18:31)
[2022-03-07 18:39] VITALS: BP 149/72; PULSE 72; RESP 17; TEMP 36.3; O2SAT 98
[2022-03-07] MEDS: Sertraline HCL 100 MG TABLET PO (20:58)
[2022-03-07] MEDS: amLODIPine Besylate 10 MG TABLET PO (20:59)
[2022-03-08] VITALS (10 sets, daily range): BP systolic 118–155; BP diastolic 56–90; PULSE 67–74; RESP 15–18; TEMP 36.1–37.1; O2SAT 94–99
[2022-03-08 07:26] LABS: Creatinine Clr Calc Pharmacy 75.4; Estimated Glomerular Filt Rate > 60
[2022-03-08] MEDS: 0.9 % Sodium Chloride Flush 10 ML SYRINGE 5 ML IVFLUSH ×2 (08:40→20:26)
--- NOTE | 2022-03-08 10:21 | W.PM.OPN ---
Operative Note Operative Note Date of Service: 03/08/22 Narrative: Operative Note Narrative: Preop diagnosis: Right distal radius osteomyelitis with retained implants Postop diagnosis: Same Procedure: 1. Right distal radius removal of implants times 7 2. Right distal radius I and D 3. Fluoroscopic evaluation of right distal radius fracture/wrist stability Surgeon: Johanna De Souza MD Anesthesia: General Anesthesia plus regional block Findings: Osteolysis of the right distal radial metaphysis extending to the articular cartilage. There is a bony cavity measuring approximately 1.2 cm in length by perhaps 2 cm in width. There was intact bone dorsally radially and ulnarly within the cavity. Soft tissue cicatrix material was debrided from within this cavity and samples of it were sent for both culture and for histopathology. There was loss of both bone and articular cartilage in the proximal scaphoid facet of the distal radius that measured perhaps 1.2 cm in width by the depth of the articular surface. The scaphoid could be see from below with wrist flexion and extension. The lunate appears to be sitting on a healed aspect of bone supporting the lunate facet. The bone supporting the lunate facet appeared to be stable on fluoroscopic images including with axial loading and gentle flexion extension gap the radiocarpal joint. There also appears to be some intact joint space on fluoroscopic images indicating the presence of intact articular cartilage within the lunate facet. The more radial aspect of the scaphoid facet also appears to have bony stability and support of the radial aspect of the carpus. Again there is a approximately 1.2 cm more central defect, corresponding with the proximal pole aspect of the scaphoid facet. Implants removed: Accu Med volar locking plate, 3 X 2.3 mm locking screw/pegs, 3 X 3.5 mm cortical screws Implants: None Tourniquet time: 51 minutes EBL: 5.0 ml Specimen: Distal radius osteomyelitis Cultures from distal radius, and specimen also sent for histopathology Drains: None Complications: None Disposition: Brought to the recovery room in stable condition Plan: Transfer back to floor. Continue IV antibiotics. Continue OT for finger range of motion and prevention of complex regional pain syndrome. Nothing heavier than a cell phone to be handled with her right hand. Anticipate discharge home with PICC line and plan for IV antibiotics per Infectious Disease Follow-up in 10-14 days for wound check, suture removal and to check cultures Indications: The patient is a 56 year old woman with right distal radius osteomyelitis with retained implants . The risks and benefits of operative treatment, including but not limited to risk of damage to blood vessels, nerves, tendons, infection, recurrence, persistent pain or numbness, incomplete resolution of preoperative symptoms, or need for further surgery were discussed with the patient and they wished to proceed with surgery. Procedure: Once consent was obtained patient was brought back to the operating suite and placed in the operating table in a supine position. A regional block was performed by the anesthesia team. A tourniquet was applied to the proximal aspect of the upper extremity and the limb was prepped and draped in a standard surgical fashion. The limb was elevated exsanguinated with Esmarch bandage and the tourniquet inflated to 250 mm of mercury for a total tourniquet time of 51 minutes. I made a longitudinal incision over the distal aspect of the right flexor carpi radialis tendon in line with her previous incisional scar. The incision was made through the skin the subcutaneous tissues using a 15. Blade. I then dissected down to the level of the flexor carpi radialis tendon. I passed radial to the FCR tendon and radial to the underlying flexor tendons down to the level of the right distal radius volar locking plate. Soft tissue was carefully elevated off of the volar locking plate using a 15. Blade and a Irby elevator. Three 3.5 mm cortical screws were removed and placed on the back table. Three 2.3 mm locking screws/pegs were then removed and placed on the back table. I was then able to remove the Accu Med volar locking plate and it was also placed on the back table. Some inflammatory tissue was elevated off the volar aspect of the distal radius from the area beneath the plate. I also used a small curette to curette out each of the screw holes. There is an area of osteolysis in the distal volar aspect of the distal radius that measured approximately 2 cm in width by 1.2 cm in length extending up to the distal radial articular surface. A rongeur and some curette swear used to perform a debridement of this cavity removing the cicatrix like material. This material was then sent for most histopathology and for cultures including Gram stain, aerobic, anaerobic, AFB and fungal cultures. Further evaluation of this cavity revealed that there was a central defect through the articular cartilage in the area of the proximal pole of the scaphoid facet that measured about 1-1.2 cm in width and along the entire depth of the articular surface in this area. The scaphoid could be visualized from below. There was intact bone dorsally radially and ulnarly. There appears to be bony support of the radial aspect of the scaphoid facet and also bony support of the lunate facet both visually and radiographically. Active fluoroscopic visualization was performed to evaluate the stability of the lunate facet and radiocarpal joint. Axial loading was also applied. Despite the central area of bone loss and even loss of that articular cartilage, the carpus appeared to be stable to axial loading and wrist flexion and extension. I did not observe any tendency towards proximal migration or volar subluxation. At this point a decision was made not to proceed with the placement of an external fixator. I also elected not to place any bone cement in this relatively small cavity. The wound was copiously irrigated with normal saline. At this point the tourniquet was deflated and hemostasis obtained with a brief period of local pressure and bipolar electrocautery. The wound was copiously irrigated with normal saline. The skin edges were reapproximated with 4-0 nylon suture. The wound was infiltrated with some 0.5% plain ropivacaine for postop pain control and a sterile dressing and volar splint were applied The patient appears to have tolerated the procedure well and with no complications. All digits were well vascularized conclusion of the case.
--- NOTE | 2022-03-08 13:10 | PM.PNORT ---
Subjective Subjective Date of Service: 03/08/22 Principal diagnosis: Right distal radius osteomyelitis Interval history: Patient says her wrist feels a little achy, as she has not had any pain medication. Otherwise she feels like she is doing okay. Physical Exam Vital Signs: Vital Signs: Last Vital Signs Temp 98.7 F 03/08/22 11:58 Pulse 69 03/08/22 11:58 Resp 16 03/08/22 11:58 BP 155/86 H 03/08/22 11:58 Pulse Ox 95 03/08/22 11:58 O2 Del Method 03/08/22 11:58 O2 Flow Rate 5 02/26/22 13:47 BMI result Body Mass Index 25.7 Extrem: Other: Patient was alert oriented and in no acute distress. With regards to her right extremity she has her right wrist splint in place. She has some mild stiffness of her fingers but can make a fist and extend all of her digits. Sensation is improving to the thumb and index finger but she still has dense numbness to the middle finger. Good sensation to the small and ring finger. Cap refill brisk. Procedures Date of Service Date of Service: 03/08/22 Progress Note: A&P Assessment and plan (1) Osteomyelitis of right radius: Status: Acute Plan Assessment and plan: 1. Right distal radius osteomyelitis with retained implants I again educated the patient about this condition and we discussed operative and non operative treatment options. The risks and benefits of operative treatment were discussed with the patient and the patient wishes to proceed with surgery. These risks include, but are not limited to risk of damage to blood vessels, nerves, tendons, infection, recurrence, incomplete relief of preoperative symptoms, persistent pain, possible need for further surgery and the risks associated with regional blocks and anesthesia. The plan is to take the patient to the operating room today for the following procedures: 1. Right distal radius removal of implants 2. Right distal radius I and D and possible placement of an antibiotic cement spacer 3. Placement of a right wrist external fixator. All questions were answered and the consent was signed. She will continue with IV antibiotics through her PICC line per our Infectious Disease Service. She has grown methicillin sensitive Staph aureus on 3 cultures from our I&D on 02/26/2022 She understands that after treatment of the bone infection, that she will need another procedure, most likely a partial wrist arthrodesis. We are going to continue with OT hand therapy to decrease the risk of RSD. She had a right carpal tunnel release at the time of her distal radius ORIF and has had some improvement in sensation to the thumb and index finger with persistent numbness at this time to the middle finger Time Spent With Patient Time: Total time spent is greater than 50% in coordination of care (as documented) at patient's floor/unit and/or counseling patient: Quality Stroke Does the patient have a stroke diagnosis?: No VTE Prior VTE?: No VTE Risk Level:: Medical - moderate - high VTE Device Contraindication: N/A - Device Ordered VTE Drug Contraindication: N/A - Med Ordered
--- NOTE | 2022-03-08 13:47 | P.CONAN_ITS ---
HPI - Anesthesia Eval Consult details Narrative: 56F for hardware removal Prior record notes limited mouth opening following propofol administration Adequate mouth opening on preop exam with no limitation to movt PMFSH Active Problems Active Problems: All Active Problems (Updated 03/05/22 @ 16:14 by Johanna De Souza MD) Osteomyelitis of right radius (Acute) Stiffness of finger joint (Acute) Infection involving suture with abscess (Acute) Acute carpal tunnel syndrome of right wrist (Acute) Distal radius fracture, right (Acute) Past Medical History Medical History Acid reflux Anxiety High blood pressure Family History Family history of problems with anesthesia: No Surgical History Surgical History H/O tubal ligation H/O: hysterectomy Previous section History of Problems with Anesthesia: No Social History Social History Household Members: Spouse Housing: House Do you presently have visiting nurse or other home services: No Patient Tobacco Use Status: Former Tobacco user Quit Date: 2020 Tobacco use type: Cigarette Use of substances other than those prescribed or required for medical reasons: Yes Substance Use Type: Marijuana Substance Use Type Other:: vapes Substance Use Frequency: Daily Currently Displaying Signs/Symptoms of Drug Intoxication Withdrawal: No Have you been hit, kicked, punched, or otherwise hurt by someone within the past year? 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 Allergies Allergy/AdvReac Type Severity Reaction Status Date / Time No Known Allergies Allergy Verified 02/23/22 10:55 Active Medications: Current Medications Acetaminophen (Acetaminophen 325 Mg Tablet) 650 mg PO Q6H PRN PRN Reason: Pain, Mild (Pain Scale 1-3) Last Admin: 03/06/22 12:29 Dose: 650 mg Amlodipine Besylate (Amlodipine Besylate 10 Mg Tablet) 10 mg PO BEDTIME [facility]; Protocol Last Admin: 03/07/22 20:59 Dose: 10 mg Docusate Sodium (Docusate Sodium 100 Mg Capsule) 100 mg PO BID [facility] Last Admin: 03/08/22 08:40 Dose: Not Given Daptomycin 550 mg/ Sodium (Chloride) 61 mls @ 100.182 mls/hr IV Q24H [facility] Last Infusion: 03/07/22 19:25 Dose: Infused Ibuprofen (Ibuprofen 600 Mg Tablet) 600 mg PO Q6H PRN PRN Reason: Pain, Mild (Pain Scale 1-3) Last Admin: 03/07/22 20:59 Dose: 600 mg Levothyroxine Sodium (Levothyroxine Sodium 112 Mcg Tablet) 112 mcg PO DAILY@0600 [facility] Last Admin: 03/08/22 05:46 Dose: Not Given Magnesium Hydroxide (Milk Of Magnesia 30 Ml Oral.Susp) 30 ml PO DAILY PRN PRN Reason: Constipation Omeprazole (Omeprazole 20 Mg Capsule.Dr) 20 mg PO DAILY@0630 [facility] Last Admin: 03/08/22 05:46 Dose: Not Given Oxycodone HCl (Oxycodone Hcl Immed Release 5 Mg Tablet) 5 mg PO Q4H PRN PRN Reason: Pain, Moderate (Pain Scale 4-6 Last Admin: 03/07/22 20:58 Dose: 5 mg Pharmacy Consult (Consult Rx Vancomycin Dosing) 1 each MISCELLANE DAILY PRN PRN Reason: Consult order Sertraline HCl (Sertraline Hcl 100 Mg Tablet) 100 mg PO BEDTIME [facility] Last Admin: 03/07/22 20:58 Dose: 100 mg Sodium Chloride (0.9 % Sodium Chloride Flush 3 Ml Syringe) 3 ml IVFLUSH QSHIFT [facility] Last Admin: 03/08/22 08:40 Dose: Not Given Sodium Chloride (0.9 % Sodium Chloride Flush 10 Ml Syringe) 5 ml IVFLUSH TID [facility] Last Admin: 03/08/22 08:40 Dose: 5 ml Home Medications Medication Instructions Recorded Confirmed Last Taken Type amlodipine 10 mg tablet 10 mg PO BEDTIME 12/08/21 02/26/22 02/25/22 History bupropion HCl 100 mg tablet,12 hr 100 mg PO DAILY 12/08/21 02/26/22 02/25/22 History sustained-release levothyroxine 112 mcg tablet 112 mcg PO DAILY@0630 12/08/21 02/26/22 02/25/22 History ibuprofen 600 mg tablet 600 mg PO BID PRN pain 02/26/22 02/26/22 02/25/22 History omeprazole 20 mg capsule,delayed 20 mg PO DAILY 02/26/22 02/26/22 02/26/22 History release sertraline 100 mg tablet 100 mg PO DAILY 02/26/22 02/26/22 02/25/22 History clonazepam 0.5 mg tablet 0.5 mg PO BID PRN Anxiety 03/05/22 03/05/22 03/05/22 13:39 History Exam Exam Date and Time: March 08, 2022 1347 Height,Weight and Vital Signs: Height 5 ft 4 in Weight 150 lb Last Vital Signs Temp 98.7 F 03/08/22 11:58 Pulse 69 03/08/22 11:58 Resp 16 03/08/22 11:58 BP 155/86 H 03/08/22 11:58 Pulse Ox 95 03/08/22 11:58 O2 Del Method 03/08/22 11:58 O2 Flow Rate 5 02/26/22 13:47 Pertinent Lab Results Pertinent Lab Results: Laboratory Tests 02/26/22 02/26/22 02/27/22 09:50 16:00 05:29 WBC RBC Hgb 11.4 L Hct 35.0 L MCV MCH MCHC RDW Plt Count MPV Immature Gran % (Auto) Neut % (Auto) Lymph % (Auto) [place] % (Auto) Eos % (Auto) Baso % (Auto) Lymph # (Auto) [place] # (Auto) Eos # (Auto) Baso # (Auto) Abs Immat Gran (auto) Absolute Neuts (auto) Absolute Nucleated RBC Nucleated RBC % (auto) Sodium Potassium Chloride Carbon Dioxide Anion Gap BUN Creatinine 0.72 Estim Creat Clear Calc 80.7 Estimated GFR > 60 Random Glucose Calcium Vancomycin Trough COVID-19 (DA) Negative COVID-19 Clin Com See Note 02/27/22 02/28/22 02/28/22 05:29 05:57 05:57 WBC RBC Hgb Hct MCV MCH MCHC RDW Plt Count MPV Immature Gran % (Auto) Neut % (Auto) Lymph % (Auto) [place] % (Auto) Eos % (Auto) Baso % (Auto) Lymph # (Auto) [place] # (Auto) Eos # (Auto) Baso # (Auto) Abs Immat Gran (auto) Absolute Neuts (auto) Absolute Nucleated RBC Nucleated RBC % (auto) Sodium Potassium Chloride Carbon Dioxide Anion Gap BUN Creatinine 0.68 0.70 Estim Creat Clear Calc 85.4 83.0 Estimated GFR > 60 > 60 Random Glucose Calcium Vancomycin Trough 9.7 L COVID-19 (DA) COVID-19 Clin Com 03/01/22 03/01/22 03/02/22 06:08 15:55 05:29 WBC RBC Hgb Hct MCV MCH MCHC RDW Plt Count MPV Immature Gran % (Auto) Neut % (Auto) Lymph % (Auto) [place] % (Auto) Eos % (Auto) Baso % (Auto) Lymph # (Auto) [place] # (Auto) Eos # (Auto) Baso # (Auto) Abs Immat Gran (auto) Absolute Neuts (auto) Absolute Nucleated RBC Nucleated RBC % (auto) Sodium Potassium Chloride Carbon Dioxide Anion Gap BUN Creatinine 0.73 0.83 Estim Creat Clear Calc 79.6 70.0 Estimated GFR > 60 > 60 Random Glucose Calcium Vancomycin Trough 17.7 COVID-19 (DA) COVID-19 Clin [facility] 03/02/22 03/02/22 03/03/22 12:28 12:28 05:32 WBC 7.6 RBC 4.48 Hgb 12.9 Hct 39.1 MCV 87.3 MCH 28.8 MCHC 33.0 RDW 13.5 Plt Count 425 H MPV 8.1 L Immature Gran % (Auto) 0.4 Neut % (Auto) 64.1 Lymph % (Auto) 26.2 [place] % (Auto) 6.9 Eos % (Auto) 1.9 Baso % (Auto) 0.5 Lymph # (Auto) 2.0 [place] # (Auto) 0.5 Eos # (Auto) 0.1 Baso # (Auto) 0.0 Abs Immat Gran (auto) 0.03 Absolute Neuts (auto) 4.8 Absolute Nucleated RBC 0.000 Nucleated RBC % (auto) 0.0 Sodium 139 Potassium 4.5 Chloride 103 Carbon Dioxide 23 Anion Gap 18 BUN 16 Creatinine 0.86 0.83 Estim Creat Clear Calc 67.6 70.0 Estimated GFR > 60 > 60 Random Glucose 107 Calcium 10.1 Vancomycin Trough COVID-19 (DA) COVID-19 [employer] 03/04/22 03/05/22 03/06/22 05:59 06:14 05:45 WBC RBC Hgb Hct MCV MCH MCHC RDW Plt Count MPV Immature Gran % (Auto) Neut % (Auto) Lymph % (Auto) [place] % (Auto) Eos % (Auto) Baso % (Auto) Lymph # (Auto) [place] # (Auto) Eos # (Auto) Baso # (Auto) Abs Immat Gran (auto) Absolute Neuts (auto) Absolute Nucleated RBC Nucleated RBC % (auto) Sodium Potassium Chloride Carbon Dioxide Anion Gap BUN Creatinine 0.79 0.78 0.79 Estim Creat Clear Calc 73.5 74.5 73.5 Estimated GFR > 60 > 60 > 60 Random Glucose Calcium Vancomycin Trough COVID-19 (DA) COVID-19 [employer] 03/07/22 03/08/22 05:44 05:41 WBC RBC Hgb Hct MCV MCH MCHC RDW Plt Count MPV Immature Gran % (Auto) Neut % (Auto) Lymph % (Auto) [place] % (Auto) Eos % (Auto) Baso % (Auto) Lymph # (Auto) [place] # (Auto) Eos # (Auto) Baso # (Auto) Abs Immat Gran (auto) Absolute Neuts (auto) Absolute Nucleated RBC Nucleated RBC % (auto) Sodium Potassium Chloride Carbon Dioxide Anion Gap BUN Creatinine 0.78 0.77 Estim Creat Clear Calc 74.5 75.4 Estimated GFR > 60 > 60 Random Glucose Calcium Vancomycin Trough COVID-19 (DA) COVID-19 [employer] Airway Mallampati Class: II TM Dist: >3cm Neck ROM: Full Loose/Missing/Broken Teeth: Yes Assessment and Plan Assessment Anesthesia Assessment: Anesthesia Plan Discussed and Chart Reviewed Final Anesthetic Review Family History of Problems with Anesthesia: No History of Problems with Anesthesia: No NPO: Yes ASA Class: II Final Preanesthetic Review: No Changes in Pt Med Stat, Meds/Allgs Chart Reviewed, Consent Obtained/Reviewed and Anes Risks/Benef Reviewed Patient Risk: Low Procedure Risk: Low Anesthetic Plan Anesthetic Plan: GA and Regional Block Disposition: Standard PACU
--- NOTE | 2022-03-08 15:17 | MHC.SHP ---
Pre-Procedural Eval Section A Date of Service: 03/08/22 The patient is an INPATIENT: No Changes since office visit: No Cold of Flu in the past 2 weeks, No New Medical Problems, No Changes in Medication and No Patient answered all questions The History & Physical has been completed within 30 days and I have reviewed it.: Yes Section B Chief Complaint: Osteomeylitis Allergies: Allergies Allergy/AdvReac Type Severity Reaction Status Date / Time No Known Allergies Allergy Verified 02/23/22 10:55 Plan I have reviewed the history and physical and performed a pertinent physical examination on my patient. No changes have occurred unless specified.
[2022-03-08] MEDS: Docusate Sodium 100 MG CAPSULE PO (19:51)
[2022-03-08] MEDS: amLODIPine Besylate 10 MG TABLET PO (19:51)
[2022-03-08] MEDS: Sertraline HCL 100 MG TABLET PO (19:51)
[2022-03-08] MEDS: DAPTOMYCIN IV (19:52)
[2022-03-08] MEDS: SODIUM CHLORIDE 0.9% IV (19:52)
[2022-03-08] MEDS: 0.9 % Sodium Chloride Flush 3 ML SYRINGE IVFLUSH (20:21)
[2022-03-08] MEDS: Ibuprofen 600 MG TABLET PO (23:52)
[2022-03-09] VITALS: BP 136/83; PULSE 68; RESP 16; TEMP 36.1; O2SAT 95
[2022-03-09 03:50] VITALS: BP 137/75; PULSE 58; RESP 16; TEMP 36.2; O2SAT 96
[2022-03-09] MEDS: Omeprazole 20 MG CAPSULE.DR PO (05:25)
[2022-03-09] MEDS: Levothyroxine Sodium 112 MCG TABLET PO (05:26)
[2022-03-09] MEDS: Acetaminophen 325 MG TABLET 650 MG PO ×2 (05:28→12:40)
--- NOTE | 2022-03-09 07:53 | PM.PNORT ---
Subjective Subjective Date of Service: 03/09/22 Principal diagnosis: Right distal radius osteomyelitis Interval history: POD1 s/p removal of orthopedic hardware with I+D of right distal radius. Patient sitting at the table. No overnight events. Pain is well managed. No additional complaints. Physical Exam Vital Signs: Vital Signs: Last Vital Signs Temp 97.1 F 03/09/22 03:50 Pulse 58 03/09/22 03:50 Resp 16 03/09/22 03:50 BP 137/75 03/09/22 03:50 Pulse Ox 96 03/09/22 03:50 O2 Del Method 03/09/22 03:50 O2 Flow Rate 4 03/08/22 15:30 BMI result Body Mass Index 25.7 Const: General: cooperative, healthy appearing and no acute distress Resp: Effort & Inspection: normal respiratory effort and able to speak in complete sentences Cardio: Rate: regular rate Peripheral pulses: Peripheral pulses 2+ throughout GI: Palpation (GI): Soft to palpation Skin: Lesions: no lesions Rashes: no rashes Extrem: Other: Right wrist splint is clean, dry, and intact. Patient able to make a closed fist. CApillary refill brisk. Sensation at baseline. Procedures Date of Service Date of Service: 03/09/22 Progress Note: A&P Assessment and plan (1) Osteomyelitis of right radius: Status: Acute Plan Continue pain mgmnt Continue OT for Right distal radius ORIF with I+D. Work on finger ROM - keep spint intact. Dispo planning-Pending w/c approval of home IV abx, pain mgmnt Time Spent With Patient Time: Total time spent is greater than 50% in coordination of care (as documented) at patient's floor/unit and/or counseling patient: Quality Stroke Does the patient have a stroke diagnosis?: No VTE Prior VTE?: No VTE Risk Level:: Medical - moderate - high VTE Device Contraindication: N/A - Device Ordered VTE Drug Contraindication: N/A - Med Ordered
[2022-03-09] MEDS: Docusate Sodium 100 MG CAPSULE PO (07:55)
[2022-03-09] MEDS: Ibuprofen 600 MG TABLET PO (07:57)
[2022-03-09 08:00] VITALS: BP 132/63; PULSE 66; RESP 16; TEMP 36.7; O2SAT 99
[2022-03-09] MEDS: 0.9 % Sodium Chloride Flush 3 ML SYRINGE IVFLUSH (08:00)
--- NOTE | 2022-03-09 08:20 | P.DS_ITS ---
DS: Providers Provider Date of Service: 03/09/22 Date of admission: 02/26/22 17:24 Primary care physician: Kareem Frankel MD Consults: 02/26/22 15:32 Consult to Infectious Diseases Stat Consulting Provider: Alicia Lua Reason for consultation: osteomyelitis Has provider been notified: Yes DS: Diagnosis Discharge Diagnosis (1) Osteomyelitis of right radius: Status: Acute DS: Summary Hospital Course Hospital Course: The patient underwent a successful 1. Right distal radius I and D ?2. Right distal radius removal of implants x 1 , was transferred to PACU and then to the floor to recover. During their stay, blood cultures were drawn which were NEGATIVE X 3, cultures obtained from the surgical site at the time of surgery POSITIVE FOR [employer]. She was seen by Dr Lua who recommended IV Daptomycin x6 weeks followed by PO. On 03/02/22, PASV PICC was placed. During her stay, her vitals were stable, afebrile at 97.5 . Labs were unremarkable, H/H 11.4/35.0, WBC , Cr 0.83, GFR >60. POD 2 her splint was removed, dressing changed and splint reapplied. She should continue to keep the splint clean, dry and intact. She was discharged home with [facility]. * Flush PICC line with 10 cc of normal saline 3 times a day * Routine discharge flushing with 10 mL of normal saline after blood specimen withdrawal, medication administration or post transfusion flushing Time Spent with Patient Time attestation: Total time spent providing and/or coordinating discharge services: Discharge coordination time: Less than 30 minutes Quality: Safe Use of Opioids Does Pt have an Active Cancer Diagnosis on the Problem List?: No Quality: Stroke Does the patient have a stroke diagnosis?: No Physical Exam Vital Signs: Vital Signs: Last Vital Signs Temp 98.1 F 03/09/22 08:00 Pulse 66 03/09/22 08:00 Resp 16 03/09/22 08:00 BP 132/63 03/09/22 08:00 Pulse Ox 99 03/09/22 08:00 O2 Del Method 03/09/22 08:00 O2 Flow Rate 4 03/08/22 15:30 BMI result Body Mass Index 25.7 Const: General: cooperative, healthy appearing and no acute distress Resp: Effort & Inspection: normal respiratory effort and able to speak in complete sentences Cardio: Rate: regular rate Peripheral pulses: Peripheral pulses 2+ throughout GI: Palpation (GI): Soft to palpation Skin: Lesions: no lesions Rashes: no rashes Extrem: Other: Right wrist splint is clean, dry, and intact. Patient able to make a closed fist. CApillary refill brisk. Sensation at baseline. DS: Data Data Completed and Pending Completed studies during hospitalization [Text1]: Pending at discharge 02/26/22 13:13 Surgical [PTH] Routine Pending studies at discharge: Pending at discharge 03/08/22 14:26 Surgical [PTH] Routine Labs on day of discharge: Preliminary micro results at discharge 02/26/22 13:13 Fungal Identification - Preliminary Wrist - Right No growth after 1 week. 02/26/22 12:47 Fungal Identification - Preliminary Wrist - Right No growth after 1 week. 02/26/22 12:47 Fungal Identification - Preliminary Wrist - Right No growth after 1 week. 02/26/22 12:47 Fungal Identification - Preliminary Wrist - Right No growth after 1 week. Discharge Plan Discharge Patient Disposition: Home, Self-Care Discharge Diagnosis: s/p I&D right wrist Referrals: [facility] [Other] - 1 Day ([facility] WILL DELIVER YOUR IV ANTIBIOTICS, THEY ALSO PROVIDE NURSING SUPPORT OVER THE PHONE IF NEEDED. ) [facility] [Outside] - 1 Day (DAVE BRIGHT FOR [facility], START OF CARE WILL BE TOMORROW 03/10 FOR FIRST DOSE OF IV ANTIBIOTICS) Alicia Lua MD [Physician] - 1 Week (03/09/22 10:30 [facility] Alicia Lua MD 2 wks,f/u,Osteomyelitis) Gabriele Smith PA-C [Physician Packaging Materials Inspector] - 1 Week (03/07/22 12:30 [facility] Gabriele Smith PA-C ) Discharge Medications: New acetaminophen 325 mg Tablet 650 mg PO Q6H PRN (Reason: Pain, Mild (Pain Scale 1-3)) 30 Days Qty: 240 0RF ibuprofen 600 mg Tablet 600 mg PO 3XD PRN (Reason: Pain, Mild (Pain Scale 1-3)) 30 Days Qty: 90 0RF oxycodone 5 mg Tablet 5 mg PO Q4H PRN (Reason: Pain, Moderate (Pain Scale 4-6) 5 Days Qty: 30 0RF Rx Instructions: Partial Fill upon patient request. daptomycin 350 mg recon soln 550 mg IV Q24H 42 Days Qty: 10 0RF (DME) crutches Kit See Rx Instructions .ROUTE Qty: 1 0RF Rx Instructions: As directed Continued omeprazole 20 mg Capsule,Delayed Release(Dr/Ec) 20 mg PO DAILY sertraline 100 mg tablet 100 mg PO DAILY ibuprofen 600 mg tablet 600 mg PO BID PRN (Reason: pain) bupropion HCl 100 mg tablet sustained-release 12 hr 100 mg PO DAILY levothyroxine 112 mcg tablet 112 mcg PO DAILY@0630 amlodipine 10 mg tablet 10 mg PO BEDTIME No Action clonazepam 0.5 mg Tablet 0.5 mg PO BID PRN (Reason: Anxiety) Discharge Orders: Discharge Order (Routine); Ordered 03/09/22 Ordered By: Maritza Parra Diet: Regular diet Activity on Discharge: As tolerated Stand Alone Forms: Patient Portal Discharge page Care Plan Goals: Restore function of joint Health Concerns: None Plan of Treatment: Continue daptomycin at this time as single agent. Will need PICC likely six weeks IV followed by oral Keep dressing clean, dry and intact Assessment: as above
--- NOTE | 2022-03-09 08:20 | W.MHC.F2F ---
Service Date Service Date: 03/09/22 Encounter Date of encounter: 03/09/22 Reasons for Services Signs and symptoms assessed: Pt. is considered homebound due to recent surgery. Unable to drive, PICC line, needs IV abx administered Reason for penitentiary: wound care, administration of IV, SQ, or IM injection, central line care, postoperative assessment and/or care, medication management, medication treatment and teach disease management Homebound: Leaving the home is medically contraindicated at this time without the asist of a device and/or another person due th the listed conditions above and below. Reason homebound: unable to drive Certification: Based on the above findings, I certify that this patient is confined to the home and needs intermittent penitentiary care, physical therapy and/or speech therapy, or continues to need occupational therapy. The patient is under my care, and I have initiated the establishment of the plan of care. The patient will be followed by a physician who will periodically review the plan of care.
--- NOTE | 2022-03-09 08:46 | MHC.CM.PN ---
PT MEDICALLY CLEARED FOR D/C HOME TODAY W/[facility] FOR IV [facility]X, ABX TO BE DELIVERED [facility] WILL BE TOMORROW AND FAM[facility] FOR TRANSPORT. PT WILL NEED TODAYS DOSE OF DAPTO PRIOR TO D/C
[2022-03-09 10:14] LABS: MANUAL DIFF FLAG NO
[2022-03-09 10:18] LABS: Basophils Percent Auto 0.4 % (0-2); Eosinophils Absolute Auto 0.1 X10*3/uL (0.0-0.4); Eosinophils Percent Auto 0.7 % (0-4); Hematocrit 35.1 % (37.0-47.0); Hemoglobin 11.8 g/dl (12.0-16.0); Imm Gran Abs Auto 0.04 X10*3/uL (0.00-0.03); Imm Gran Pct Auto 0.4 % (0.0-0.4); Lymphocytes Absolute Auto 2.7 X10*3/uL (1.2-4.9); Lymphocytes Percent Auto 26.7 % (20-40); Mean Corpuscular HGB Conc 33.6 g/dl (31.0-35.0); Mean Corpuscular Hemoglobin 28.6 pg (27.0-33.0); Mean Platelet Volume 8.1 fL (9.4-12.3); Monocytes Absolute Auto 0.8 X10*3/uL (0.1-1.2); Monocytes Percent Auto 8.2 % (2-11); Neutrophils Absolute Auto 6.5 x10*3/uL (2.0-8.3); Neutrophils Percent Auto 63.6 % (45-73); Platelet Count 338 X10*3/uL (160-400); Red Blood Count 4.13 X10*6/uL (4.20-5.50); Red Cell Distribution Width 13.2 % (11.0-16.0); White Blood Count 10.2 X10*3/uL (4.8-10.8)
[2022-03-09 10:30] LABS: Anion Gap 14 (12-20); Blood Urea Nitrogen 15 mg/dL (9-16); Calcium 9.9 mg/dL (8.4-10.2); Carbon Dioxide 25 mmol/L (22-29); Chloride 105 mmol/L (96-108); Creatinine Clr Calc Pharmacy 58.1; Estimated Glomerular Filt Rate 57; Glucose Random 91 mg/dL (60-115); Potassium 4.1 mmol/L (3.3-5.1); Sodium 140 mmol/L (135-145)
[2022-03-09 13:50] VITALS: O2SAT 96
[2022-03-09 16:00] VITALS: BP 177/100; PULSE 73; RESP 16; TEMP 36.6; O2SAT 96
[2022-03-09] MEDS: SODIUM CHLORIDE 0.9% IV (16:57)
[2022-03-09] MEDS: DAPTOMYCIN IV (16:57)
== END 2022-03-09 17:41 | disposition home or self-care (01) | DRG 464 ==
LOC: HO.S3 03-09 15:17 → HO.SSSA 03-14 10:05
PROVIDERS: Physician Assistant; Admitting Provider Orthopaedic Surgery; PCP Family Medicine; Visit Provider Orthopaedic Surgery
PROC: 0PBH0ZX Excision of Right Radius, Open Approach, Diagnostic (ICD-10-PCS; principal; 2022-02-26 11:00)
PROC: 0JBG0ZZ Excision of Right Lower Arm Subcutaneous Tissue and Fascia, Open Approach (ICD-10-PCS; principal; 2022-03-08 12:30)
DX: T84.612A Infection and inflammatory reaction due to internal fixation device of right radius, initial encounter (principal); M86.9 Osteomyelitis, unspecified; S52.501A Unspecified fracture of the lower end of right radius, initial encounter for closed fracture; K21.9 Gastro-esophageal reflux disease without esophagitis; F41.9 Anxiety disorder, unspecified; B95.61 Methicillin susceptible Staphylococcus aureus infection as the cause of diseases classified elsewhere; G56.01 Carpal tunnel syndrome, right upper limb; Z20.822 Contact with and (suspected) exposure to COVID-19; Z87.891 Personal history of nicotine dependence; Z79.890 Hormone replacement therapy; Z79.899 Other long term (current) drug therapy; X58.XXXA Exposure to other specified factors, initial encounter
CPT/HCPCS: 29125; 36415; 36573; 80048; 80202; 82565; 85014; 85018; 85025; 87040; 87070; 87073; 87077; 87102; 87107; 87116; 87186; 87205; 87635; 88304; 88305; 88311; 97110; 97140; 97166; 97760; C1751; J0878; J1100; J1170; J2250; J2405; J2795; J3010; J3370

== ENCOUNTER 2022-03-19 17:57 | Outpatient (REF) | payer OTHER, SELFPAY ==
--- NOTE | ~2022-03-19 | XR_ITS ---
EXAMINATION: XR WRIST, RIGHT CLINICAL INFORMATION: Right wrist pain COMPARISON: 02/21/2022 TECHNIQUE: PA, lateral, and oblique views of the right wrist. FINDINGS: Interval removal of the distal radius hardware with residual lucency/defect along the articular surface, slight widening of the scapholunate interval, and ulnar positive variance. XR/XR wrist RT min 3V IMPRESSION: Interval removal of the distal radius hardware with prominent residual lucency/defect along the articular surface, and slight widening of the scapholunate interval.
== END 2022-03-19 17:58 | disposition home or self-care (01) ==
LOC: HO.HOSX 17:57
PROVIDERS: Visit Provider Orthopaedic Surgery
DX: M25.531 Pain in right wrist (principal)
CPT/HCPCS: 73110

== ENCOUNTER → 2022-03-26 11:11 | Outpatient (BNVA) | payer OTHER, SELFPAY | PROVIDERS: PCP Family Medicine; Visit Provider Internal Medicine | DX: M86.9 Osteomyelitis, unspecified (principal); T81.41XD Infection following a procedure, superficial incisional surgical site, subsequent encounter | CPT/HCPCS: 99212 ==

== ENCOUNTER 2022-04-16 15:51 | Outpatient (REF) | payer OTHER, SELFPAY ==
--- NOTE | ~2022-04-16 | XR_ITS ---
EXAMINATION: XR WRIST, RIGHT CLINICAL INFORMATION: M25.531 - Pain in right wrist COMPARISON: Radiographs right wrist 03/20/2022, 02/21/2022 TECHNIQUE: Right wrist is imaged in 4 views. FINDINGS: Radiographs are similar to recent exam 03/20/2022. There is positive ulnar variance. Screw tracks are seen in the distal radial shaft. There is a prominent residual lucency/defect at the distal radial articular surface similar to prior exam. Cystic change mid carpal navicular again present. There is no interval fracture or dislocation or destructive process. Generalized osteopenia. No periostitis. XR/XR wrist RT min 3V IMPRESSION: -No significant change from prior study 03/20/2022 -Stable defect distal radial articular surface, cystic change mid carpal navicular, and positive ulnar variance.
== END 2022-04-16 15:52 | disposition home or self-care (01) ==
LOC: HO.HOSX 15:51
PROVIDERS: Visit Provider Orthopaedic Surgery
DX: M25.531 Pain in right wrist (principal)
CPT/HCPCS: 73110

== ENCOUNTER 2022-04-17 09:19 | Outpatient (REF) | payer OTHER, SELFPAY ==
--- NOTE | ~2022-04-17 | XR_ITS ---
EXAMINATION: XR WRIST, RIGHT CLINICAL INFORMATION: M25.531 - Pain in right wrist COMPARISON: Radiographs right wrist 03/20/2022, 02/21/2022 TECHNIQUE: Right wrist is imaged in 4 views. FINDINGS: Radiographs are similar to recent exam 03/20/2022. There is positive ulnar variance. Screw tracks are seen in the distal radial shaft. There is a prominent residual lucency/defect at the distal radial articular surface similar to prior exam. Cystic change mid carpal navicular again present. There is no interval fracture or dislocation or destructive process. Generalized osteopenia. No periostitis. XR/XR wrist RT 2V IMPRESSION: -No significant change from prior study 03/20/2022 -Stable defect distal radial articular surface, cystic change mid carpal navicular, and positive ulnar variance.
== END 2022-04-17 09:20 | disposition home or self-care (01) ==
LOC: HO.HOSX 09:19
PROVIDERS: Visit Provider Orthopaedic Surgery
DX: M25.531 Pain in right wrist (principal); M86.9 Osteomyelitis, unspecified; Z79.01 Long term (current) use of anticoagulants
CPT/HCPCS: 73100; 99212

== ENCOUNTER 2022-05-15 10:59 | Outpatient (REF) | payer OTHER, SELFPAY ==
[2022-05-15 13:15] LABS: Erythrocyte Sedimentation Rate 5 MM/HR (0-20)
== END 2022-05-15 11:00 | disposition home or self-care (01) ==
LOC: HO.LAB 10:59
PROVIDERS: Visit Provider Internal Medicine
DX: M86.9 Osteomyelitis, unspecified (principal)
CPT/HCPCS: 36415; 85652; 99212